=== PATIENT | male | born 1955 | race Caucasian/White ===

== ENCOUNTER 2017-04-11 14:15 | Inpatient (IN) | payer MEDICARE, OTHER ==
[~2017-04-11] VITALS: Ht 177.8 cm; Wt 79.9 kg
[2017-04-11 14:18] VITALS: BP 137/85
[2017-04-11] MEDS ORDERED: Ipratropium 0.02% Inh Soln 2.5ml UD HHN ONE (14:30)
[2017-04-11] MEDS ORDERED: Solu-MEDROL 125mg Inj IVP ONE (14:30)
--- NOTE | 2017-04-11 14:31 | Emergency Room Report ---
History of Present Illness General Chief Complaint: Overdose Source: Patient, Medical Record, EMS (Bell Rosa M.D.) Present Illness HPI 61-year-old male with history of COPD, current smoker, p/w possible overdose Patient states that today he went to go smoke a cigarette, came back inside, and does not remember anything. EMS states that when they arrived, patient had decreased respirations, low oxygen saturation, they gave 4 mg intranasal Narcan, with improvement of symptoms. Patient then became ANO x4, with improvement of oxygenation EMS also states that patient is only on Neurontin, stated that girlfriend came yesterday, and possibly gave something to the patient. However patient is denying this. Patient denies any drug or alcohol use. Patient also shortness of breath, states that he is intermittently on nasal cannula SOB occurs both at rest and on exertion. Denies any fever chills cough or chest pain currently. Patient doesn't have a history of intubation in the past secondary to COPD exacerbation (Bell Rosa M.D.) Allergies: Coded Allergies: HALOPERIDOL (Verified Allergy, Unknown, 04/12/17) THIORIDAZINE (Verified Allergy, Unknown, 04/12/17) TIOTROPIUM (Verified Allergy, Unknown, 04/12/17) Patient History Past Medical History: see triage record Past Surgical History: none Pertinent Family History: none Reviewed Nursing Documentation: PMH: Agreed, PSxH: Agreed (Bell Rosa M.D. ) Nursing Documentation-PMH Hx Hypertension: Yes Hx COPD: Yes (Bell Rosa M.D.) Physical Exam Vital Signs Date Time Temp Pulse Resp B/P (MAP) Pulse Ox O2 Delivery O2 Flow Rate FiO2 04/11/17 14:08 98.6 90 16 137/85 94 Nasal Cannula 3.0 Sp02 EP Interpretation: abnormal General Appearance: alert, GCS 15, moderate distress, other - Middle aged male , alert, conversing appropriately, respiratory distress, speaking in 3-4 word sentences Head: normocephalic, atraumatic Eyes: bilateral eye normal inspection, bilateral eye PERRL, bilateral eye EOMI ENT: normal ENT inspection, normal pharynx, normal voice, moist mucus membranes Neck: normal inspection, full range of motion, supple Respiratory: other - Inspiratory and expiratory wheezing bilaterally, respiratory distress Cardiovascular #1: normal inspection, regular rate, rhythm, normal capillary refill Cardiovascular #2: 2+ radial (R), 2+ radial (L) Gastrointestinal: normal inspection, non tender, soft, non-distended, no guarding Musculoskeletal: normal inspection, back normal, normal range of motion, non- tender Neurologic: normal inspection, alert, oriented x3, responsive, motor strength/ tone normal, sensory intact, normal gait, speech normal Psychiatric: normal inspection, judgement/insight normal, memory normal Skin: normal inspection, normal color, no rash, warm/dry, well hydrated, normal turgor (Bell Rosa M.D.) Procedures Critical Care Time Critical Care Time 40 minutes of CC time 61-year-old male, possible overdose, also with COPD exacerbation VS: Hypoxic, tachypneic PLAN: IV access, labs, nebs, steroids, magnesium, BiPAP Anticipate admission to Tele vs. [facility] CC time also includes review of labs, review of EMR, discussion with family and paperwork from SNF, d/w hospitalist CC could include dosing of pressors, additional Abx CC time does not include procedures (Bell Rosa M.D.) Intubation Intubation : Consent: Emergent Intubation Method: orotracheal Tube Size (cm): 7.5 Medications: Etomidate Breath Sounds after Intubation: equal Intubation Complications: no complications Post Intubation Xray: Yes Attempts: One Patient Tolerated: Well Complications: None (Bell Rosa M.D.) Medical Decision Making Diagnostic Impression: Primary Impression: COPD exacerbation Additional Impressions: UTI (urinary tract infection) Respiratory failure ER Course 61-year-old male, history of COPD, shortness of breath, also possible overdose DDX: COPD exacerbation, viral illness, pneumonia, ACS Overdose secondary to opiates, heroin and, other toxic overdoses Plan: IV access, cardiac cath rn, O2 nasal cannula, EKG, CXR obtain basic labs including blood gas, troponin, Duonebs, steroids, consider mag, Will consider BIPAP for persistent or worsening respiratory status ER Course: Patient has been placed on BIPAP. Patient has been treated with combivent x 3, steroids + IV mag sulfate CXR reveals no acute infiltrate Repeat lung auscultation reveals persistent wheezing. Patent's remains tachypneic and hypoxic on room air. abx given, also had UTI Disposition: Patient will be admitted to ICU D/W hospitalist Dr Maldonado Please note that this Emergency Department Report was dictated using Live [employer] intervention specialist technology software, occasionally this can lead to erroneous entry secondary to interpretation by the dictation equipment. EKG Diagnostic Results EP Interpretation: Yes Rate: normal Rhythm: NSR ST Segments: No acute changes n ASA given to patient: no Rhythm Strip EP Interpretation: Yes Rate: 85 Rhythm: NSR, no PVCs, no ectopy Chest X-ray CXR: Ordered: Yes 1 view Indication: Shortness of breath EP interpretation: Yes Interpretation: No consolidation, no effusion, no PTX, no acute cardiopulmonary disease Impression: No acute disease Electronically signed by Bell Rosa MD Chest X-ray CXR: Ordered: Yes 1 view Indication: ET-tube EP interpretation: Yes Interpretation: ET tube in appropriate position Impression: ET tube in appropriate position Electronically signed by Bell Rosa MD Laboratory Tests Test 04/11/17 14:25 04/11/17 15:05 04/11/17 15:50 04/11/17 16:41 Arterial Blood pH 7.340 (7.350-7.450) 7.301 (7.350-7.450) 7.296 (7.350-7.450) Arterial Blood Partial Pressure CO2 81.4 mmHg (35.0-45.0) *H 77.9 mmHg (35.0-45.0) *H 90.8 mmHg (35.0-45.0) *H Arterial Blood Partial Pressure O2 51.6 mmHg (75.0-100.0) L 92.4 mmHg (75.0-100.0) 88.0 mmHg (75.0-100.0) Arterial Blood HCO3 42.9 mmol/L (22.0-26.0) H 37.6 mmol/L (22.0-26.0) H 43.3 mmol/L (22.0-26.0) H Arterial Blood Oxygen Saturation 86.2 % (92.0-98.0) L 96.2 % (92.0-98.0) 96.2 % (92.0-98.0) Arterial Blood Base Excess 13.1 8.0 12.3 Henrry Test Positive Positive Positive White Blood Count 7.4 K/UL (4.8-10.8) Red Blood Count 5.11 M/UL (4.70-6.10) Hemoglobin 14.5 G/DL (14.2-18.0) Hematocrit 43.8 % (42.0-52.0) Mean Corpuscular Volume 86 FL (80-99) Mean Corpuscular Hemoglobin 28.5 PG (27.0-31.0) Mean Corpuscular Hemoglobin Concent 33.2 G/DL (32.0-36.0) Red Cell Distribution Width 16.7 % (11.6-14.8) H Platelet Count 208 K/UL (150-450) Mean Platelet Volume 6.3 FL (6.5-10.1) L Neutrophils (%) (Auto) 66.9 % (45.0-75.0) Lymphocytes (%) (Auto) 21.2 % (20.0-45.0) Monocytes (%) (Auto) 9.4 % (1.0-10.0) Eosinophils (%) (Auto) 1.4 % (0.0-3.0) Basophils (%) (Auto) 1.1 % (0.0-2.0) Urine Color Pale yellow Urine Appearance Slightly cloudy Urine pH 7 (4.5-8.0) Urine Specific Drewsey 1.000 (1.005-1.035) Urine Protein Negative (NEGATIVE) Urine Glucose (UA) Negative (NEGATIVE) Urine Ketones Negative (NEGATIVE) Urine Occult Blood Negative (NEGATIVE) Urine Nitrite Negative (NEGATIVE) Urine Bilirubin Negative (NEGATIVE) Urine Urobilinogen Normal MG/DL (0.0-1.0) Urine Leukocyte Esterase 3+ (NEGATIVE) H Urine RBC 0 /HPF (0 - 0) Urine WBC 15-20 /HPF (0 - 0) H Urine Squamous Epithelial Cells Occasional /LPF Urine Bacteria Moderate /HPF (NONE) H Sodium Level 137 MMOL/L (136-145) Potassium Level 4.0 MMOL/L (3.5-5.1) Chloride Level 98 MMOL/L (98-107) Carbon Dioxide Level 39 MMOL/L (21-32) H Anion Gap -4 mmol/L (5-15) L Blood Urea Nitrogen 8 mg/dL (7-18) Creatinine 0.7 MG/DL (0.55-1.30) Estimate Glomerular Filtration Rate > 60 mL/min (>60) Glucose Level 92 MG/DL (74-106) Calcium Level 8.8 MG/DL (8.5-10.1) Total Bilirubin 0.2 MG/DL (0.2-1.0) Aspartate Amino Transferase (AST) 24 U/L (15-37) Alanine Aminotransferase (ALT) 26 U/L (12-78) Alkaline Phosphatase 63 U/L (46-116) Troponin I 0.013 ng/mL (0.000-0.056) Pro-B-Type Natriuretic Peptide 388 pg/mL (0-125) H Total Protein 6.6 G/DL (6.4-8.2) Albumin 3.0 G/DL (3.4-5.0) L Globulin 3.6 g/dL Albumin/Globulin Ratio 0.8 (1.0-2.7) L Salicylates Level 2.1 ug/mL (2.8-20) L Urine Opiates Screen Negative (NEGATIVE) Acetaminophen Level < 2 MCG/ML (10-30) L Urine Barbiturates Screen Negative (NEGATIVE) Phencyclidine (PCP) Screen Negative (NEGATIVE) Urine Amphetamines Screen Negative (NEGATIVE) Urine Benzodiazepines Screen Negative (NEGATIVE) Urine Cocaine Screen Negative (NEGATIVE) Urine Marijuana (THC) Screen Negative (NEGATIVE) Serum Alcohol < 3 mg/dL (Bell Rosa M.D.) ER Course Please see above history and physical. The patient's and potassium side. We are repeating a EKG. The patient has a respiratory acidosis which may contribute to the potassium. In addition to that will be giving him a calcium gluconate and Lasix. EKG without peaked T waves. Patient anxious off of propofol. Versed ordered. Due to ABG and CXR, not able to extubate at this time. (Malik Bravo M.D.) EKG Diagnostic Results Rate: tachycardiac ST Segments: no acute changes (Malik Bravo M.D.) Rhythm Strip Diag. Results EP Interpretation: yes Rhythm: no PVC's, no ectopy, other - ST (Malik Bravo M.D.) Last Vital Signs Date Time Temp Pulse Resp B/P (MAP) Pulse Ox O2 Delivery O2 Flow Rate FiO2 04/11/17 14:08 98.6 90 16 137/85 94 Nasal Cannula 3.0 (Bell Rosa M.D.) Status: improved (Malik Bravo M.D.) Disposition: ADMITTED INPATIENT Condition: Critical Bell Rosa M.D. Apr 11, 2017 14:31 Malik Bravo M.D. Apr 12, 2017 07:01
[2017-04-11] MEDS: Albuterol ud Inhalation HHN SCH ×5 (15:01→20:04)
[2017-04-11 15:19] LABS: BILIRUBIN, URINE NEGATIVE (NEGATIVE); COLOR,URINE PALE YELLOW; GLUCOSE, URINE (UA) NEGATIVE (NEGATIVE); KETONES,URINE NEGATIVE (NEGATIVE); LEUKOCYTE ESTERASE ,URINE 3+ (NEGATIVE); NITRITE,URINE NEGATIVE (NEGATIVE); PH,URINE 7 (4.5-8.0); PROTEIN,URINE NEGATIVE (NEGATIVE); UROBILINOGEN,URINE NORMAL MG/DL (0.0-1.0)
[2017-04-11 15:25] LABS: BASOPHILS % (AUTO) 1.1 % (0.0-2.0); EOSINOPHILS % (AUTO) 1.4 % (0.0-3.0); HEMATOCRIT 43.8 % (42.0-52.0); HEMOGLOBIN 14.5 G/DL (14.2-18.0); LYMPHOCYTES % (AUTO) 21.2 % (20.0-45.0); MEAN CORPUSCULAR VOLUME 86 FL (80-99); MONOCYTES % (AUTO) 9.4 % (1.0-10.0); NEUTROPHILS % (AUTO) 66.9 % (45.0-75.0); PLATELET COUNT 208 K/UL (150-450); RED BLOOD COUNT 5.11 M/UL (4.70-6.10); RED CELL DISTRIBUTION WIDTH 16.7 % (11.6-14.8); WHITE BLOOD COUNT 7.4 K/UL (4.8-10.8)
[2017-04-11 15:30] VITALS: BP 135/86
[2017-04-11 15:31] LABS: APPEARANCE,URINE SLIGHTLY CLOUDY
[2017-04-11 15:37] LABS: ALANINE AMINOTRANSFERASE 26 U/L (12-78); ALBUMIN/GLOBULIN RATIO 0.8 (1.0-2.7); ALKALINE PHOSPHATASE 63 U/L (46-116); ANION GAP -4 mmol/L (5-15); ASPARTATE AMINO TRANSFERASE 24 U/L (15-37); BILIRUBIN,TOTAL 0.2 MG/DL (0.2-1.0); BLOOD UREA NITROGEN 8 mg/dL (7-18); CALCIUM 8.8 MG/DL (8.5-10.1); CHLORIDE 98 MMOL/L (98-107); CREATININE 0.7 MG/DL (0.55-1.30); SODIUM 137 MMOL/L (136-145)
[2017-04-11] MEDS ORDERED: Cefepime HCl 2 GM in D5W 55 ML IVPB ONE (15:45)
[2017-04-11 15:48] LABS: CARBON DIOXIDE 39 MMOL/L (21-32)
[2017-04-11 17:33] VITALS: BP 131/85
[2017-04-11] MEDS ORDERED: Cefepime 2gm ONE (18:47)
[2017-04-11] MEDS: Ipratropium 0.02% Inh Soln 2.5ml UD HHN SCH ×3 (19:26→20:04)
[2017-04-11 19:33] VITALS: BP 124/104
--- NOTE | 2017-04-11 20:03 | Consultation ---
Consult Note Assessment/Plan pulm consult dict DENISA MALONEY Apr 11, 2017 20:03
[2017-04-11 20:33] VITALS: BP 129/77
[2017-04-11] MEDS ORDERED: D5 1/2NS w/KCl 20mEq 1,000 ML IV SCH (22:00)
[2017-04-11] MEDS ORDERED: Pantoprazole Inj IVP SCH (22:00)
[2017-04-11 22:33] VITALS: BP 111/69
[2017-04-11] MEDS: cefTRIAXone 1 GM in NS 55 ML IVPB SCH (22:52)
[2017-04-11] MEDS ORDERED: Azithromycin 500mg Inj IV ONE (23:45)
[2017-04-11] MEDS: Azithromycin 250 MG in D5W 275 ML IV SCH (23:57)
[2017-04-12] VITALS (20 sets, daily range): BP systolic 120–166; BP diastolic 67–86
[2017-04-12] MEDS ORDERED: ALBUTEROL2.5 MG/3 M INH (00:01)
[2017-04-12] MEDS ORDERED: FAMOTIDINE20 MG ORAL (00:02)
[2017-04-12] MEDS ORDERED: AMLODIPINE BES2.5 MG ORAL (00:02)
[2017-04-12] MEDS ORDERED: GABAPENTIN400 MG ORAL (00:03)
[2017-04-12] MEDS ORDERED: MAGNESIUM400 M1 PO (00:03)
[2017-04-12] MEDS ORDERED: TAMSULOSIN HCL0.4 MG ORAL (00:04)
[2017-04-12] MEDS ORDERED: MIRTAZAPINE15 MG ORAL (00:06)
[2017-04-12] MEDS ORDERED: TYLENOL650 MG/20. ORAL (00:07)
[2017-04-12] MEDS ORDERED: MULTIVITAMINS1 EAC2 ORAL (00:07)
[2017-04-12] MEDS ORDERED: PRO-STAT LIQUID30 ML ORAL (00:08)
[2017-04-12] MEDS ORDERED: WELLBUTRIN SR100 MG ORAL (00:08)
[2017-04-12] MEDS: Albuterol/Ipratropium 3ml neb HHN SCH ×7 (00:13→23:34)
[2017-04-12] MEDS: Solu-MEDROL 40mg Inj IVP SCH ×5 (01:10→23:55)
--- NOTE | 2017-04-12 04:45 | Consultation ---
DATE OF CONSULTATION: 04/11/2017 PULMONARY CONSULTATION CHIEF COMPLAINT: Short of breath and altered mental status. HISTORY OF PRESENT ILLNESS: This is a 61-year-old man with a history of chronic obstructive pulmonary disease, who is a current smoker was living at a facility and went out to smoke. When he came back, he does not remember anything that happened after that. He was brought to the emergency department with altered mental status. There was a question of drug overdose and Narcan was given, but his toxicology screen was negative. Apparently became more alert after Narcan. In the emergency department, he was short of breath and blood gases showed severe respiratory acidosis and he was intubated. I was called in to see him in consultation. PAST MEDICAL HISTORY: Apparently, the patient has a history of chronic obstructive pulmonary disease and was intubated about a month ago at another hospital according to the primary physician, details are not known. ALLERGIES: Haloperidol. MEDICATIONS: Neurontin. REVIEW OF SYSTEMS: Cannot be obtained. PHYSICAL EXAMINATION: GENERAL: The patient is awake, but sedated. He appears well developed and well nourished. VITAL SIGNS: Stable. He has saturation of 100% on 100% oxygen by ventilator. SKIN: Warm and dry. HEENT: The head is normocephalic. NECK: No jugular venous distention. CHEST: Decreased air entry with prolonged expiratory phase. There is no wheezing or rales. CARDIAC: Rhythm is regular. Heart tones are distant. ABDOMEN: Soft and nontender. Liver and spleen not enlarged. EXTREMITIES: No clubbing, cyanosis, or edema. LABORATORY STUDIES: Show toxicology with negative results. Blood gas shows pH of 7.3, pCO2 of 90, and pO2 of 88 before intubation. His blood gas was getting progressively worse before intubation. The white count is normal. Hemoglobin is 14.5, platelets are normal. Chemistry shows elevated bicarbonate. Natriuretic peptide is 388. Albumin 3.0. Urinalysis shows 15 to 20 white cells. DIAGNOSTIC DATA: Chest x-ray shows hyperinflation with no acute changes. There are healed rib fractures on the left. IMPRESSION: 1. Acute respiratory failure. 2. Chronic obstructive pulmonary disease, hypercapnic type. 3. Possible drug abuse, although toxicology screen was negative. He responded favorably to Narcan. 4. Urinary tract infection. PLAN: The patient will be admitted to intensive care unit on ventilator support with steroids, bronchodilators, and antibiotics as well as intravenous fluids. Ketan Celestin M.D. DR: TOMÁS JOB#: [id number] CC: Jacqueline Rodriguez M.D.; Fax#: [phone] KETAN CELESTIN M.D. ; FAX#: [phone]
[2017-04-12] MEDS ORDERED: Solu-MEDROL 40mg Inj ONE (06:08)
[2017-04-12 06:25] LABS: HEMATOCRIT 46.7 % (42.0-52.0); HEMOGLOBIN 15.1 G/DL (14.2-18.0); MEAN CORPUSCULAR VOLUME 87 FL (80-99); PLATELET COUNT 236 K/UL (150-450); RED BLOOD COUNT 5.34 M/UL (4.70-6.10); RED CELL DISTRIBUTION WIDTH 17.5 % (11.6-14.8); WHITE BLOOD COUNT 9.2 K/UL (4.8-10.8)
[2017-04-12 06:49] LABS: ALANINE AMINOTRANSFERASE 27 U/L (12-78); ALBUMIN 3.1 G/DL (3.4-5.0); ALBUMIN/GLOBULIN RATIO 0.8 (1.0-2.7); ALKALINE PHOSPHATASE 70 U/L (46-116); ANION GAP 1 mmol/L (5-15); ASPARTATE AMINO TRANSFERASE 34 U/L (15-37); BILIRUBIN,TOTAL 0.3 MG/DL (0.2-1.0); BLOOD UREA NITROGEN 16 mg/dL (7-18); CALCIUM 9.4 MG/DL (8.5-10.1); CARBON DIOXIDE 37 MMOL/L (21-32); CHLORIDE 96 MMOL/L (98-107); SODIUM 133 MMOL/L (136-145)
[2017-04-12] MEDS ORDERED: Calcium Gluconate 1gm/10ml vial IVP ONE (07:00)
[2017-04-12] MEDS ORDERED: Midazolam 2mg/2ml Inj IVP ONE (07:15)
[2017-04-12] MEDS ORDERED: D5 1/2NS 1,000 ML IV SCH (08:15)
[2017-04-12] MEDS ORDERED: Albuterol/Ipratropium 3ml neb HHN PRN (09:30)
--- NOTE | 2017-04-12 11:16 | Diagnostic Imaging Report ---
Indication: Reason For Exam: SOB Technique: One view of the chest Comparison: none Findings: Multiple old healed left rib fracture deformities are demonstrated. The heart size is normal. The lungs and pleural spaces are clear. Impression: No acute process
--- NOTE | 2017-04-12 12:20 | Diagnostic Imaging Report ---
Indication: Status post endotracheal tube placement Technique: One view of the chest Comparison: 5 hours earlier Findings: There is an endotracheal tube, tip above the thoracic inlet, at or just below the level of the vocal cords. Patient is rotated to the right. Lungs and pleural spaces are clear. Healed left rib fractures and underlying pleural thickening are again demonstrated. There are some old right rib fracture deformities on the current study which are more apparent than on the prior. Impression: High position of endotracheal tube. This was apparently recognized, as a subsequent radiograph demonstrates improved position. Other findings as noted
--- NOTE | 2017-04-12 12:38 | Diagnostic Imaging Report ---
Indication: Post endotracheal tube readjustment Technique: One view of the chest Comparison: One hour earlier Findings: Interval advancement of endotracheal tube, tip now at or just below the thoracic inlet, approximately 6 cm above the adriana. Atelectasis or scarring is seen at the left lung base. Bilateral healed rib fracture deformities and associated pleural thickening are again demonstrated. No new infiltrates Impression: Improved and now satisfactory position of endotracheal tube Other stable findings as described
--- NOTE | 2017-04-12 13:31 | Consultation ---
Consult Note Consult Note asked to evaluate for high K is ER: 61-year-old male with history of COPD, current smoker, p/w possible overdose Patient states that today he went to go smoke a cigarette, came back inside, and does not remember anything. EMS states that when they arrived, patient had decreased respirations, low oxygen saturation, they gave 4 mg intranasal Narcan, with improvement of symptoms. Patient then became ANO x4, with improvement of oxygenation EMS also states that patient is only on Neurontin, stated that girlfriend came yesterday, and possibly gave something to the patient. However patient is denying this. Patient denies any drug or alcohol use. Patient also shortness of breath, states that he is intermittently on nasal cannula SOB occurs both at rest and on exertion. Denies any fever chills cough or chest pain currently. Patient doesn't have a history of intubation in the past secondary to COPD exacerbation Patient examined- data reviewed Discussed with RN . Assessment/Plan Currently in ICU Was extubated High K possibly hemolysis. Other: - Acute respiratory failure. - Chronic obstructive pulmonary disease, hypercapnic type. - Possible drug abuse, although toxicology screen was negative. He responded favorably to Narcan. - Urinary tract infection. Plan : Recheck stat K . And treat and comment according to the results continue per pulmonary. CHIP DINH Apr 12, 2017 13:31
[2017-04-12] MEDS: D5NS 1,000 ML IV SCH (15:30)
--- NOTE | 2017-04-12 16:52 | Pulmonology Progress Note ---
Assessment/Plan Assessment/Plan 1. Acute respiratory failure. 2. Chronic obstructive pulmonary disease, hypercapnic type. 3. Possible drug abuse. 4. Urinary tract infection. Looks much better good weaning parameters this AM when I visited extubate start diet cont HHN, steroids, abx Subjective Constitutional: Reports: no symptoms Respiratory: Denies: shortness of breath Allergies: Coded Allergies: HALOPERIDOL (Verified Allergy, Unknown, 04/12/17) THIORIDAZINE (Verified Allergy, Unknown, 04/12/17) TIOTROPIUM (Verified Allergy, Unknown, 04/12/17) Objective Last 24 Hour Vital Signs Date Time Temp Pulse Resp B/P (MAP) Pulse Ox O2 Delivery O2 Flow Rate FiO2 04/12/17 16:00 3.0 04/12/17 15:00 99 20 133/71 91 04/12/17 14:45 100 26 97 Nasal Cannula 3.0 32 04/12/17 14:34 98 19 92 Nasal Cannula 3.0 32 04/12/17 14:00 97 20 131/68 92 04/12/17 13:00 104 23 120/69 92 04/12/17 12:00 107 04/12/17 12:00 99.0 107 26 127/76 92 04/12/17 11:00 104 33 123/74 92 04/12/17 10:54 95 24 98 Nasal Cannula 3.0 32 04/12/17 10:43 95 28 91 Nasal Cannula 3.0 32 04/12/17 10:00 88 25 136/69 89 04/12/17 09:30 93 27 96 Nasal Cannula 3.0 32 04/12/17 09:20 96 20 91 Nasal Cannula 3.0 32 04/12/17 09:00 90 23 147/76 92 04/12/17 09:00 Nasal Cannula 3.0 32 04/12/17 09:00 3.0 04/12/17 08:46 87 19 65 04/12/17 08:20 97 20 156/73 100 Mechanical Ventilator 04/12/17 08:00 30 04/12/17 08:00 97.9 90 16 147/76 100 Mechanical Ventilator 04/12/17 07:12 112 16 99 Mechanical Ventilator 65 04/12/17 07:01 89 15 98 Mechanical Ventilator 65 04/12/17 07:01 89 15 65 04/12/17 05:33 97.8 80 17 133/69 100 Mechanical Ventilator 04/12/17 04:33 97.8 77 13 125/79 100 Mechanical Ventilator 04/12/17 04:12 40 04/12/17 04:12 79 12 100 Mechanical Ventilator 65 04/12/17 04:02 88 12 99 Mechanical Ventilator 65 04/12/17 03:18 85 12 65 04/12/17 02:33 98.0 80 12 130/84 100 Mechanical Ventilator 04/12/17 01:25 89 17 65 04/12/17 00:33 97.8 81 13 130/68 100 Mechanical Ventilator 04/12/17 00:27 86 12 100 Mechanical Ventilator 65 04/12/17 00:27 40 04/12/17 00:13 86 14 99 Mechanical Ventilator 65 04/11/17 23:11 88 12 65 04/11/17 22:33 98.0 84 18 111/69 98 Mechanical Ventilator 04/11/17 21:10 88 18 100 04/11/17 21:10 18 04/11/17 20:33 98.0 87 17 129/77 98 Mechanical Ventilator 04/11/17 20:10 17 04/11/17 19:46 17 04/11/17 19:33 98.1 88 18 124/104 97 Mechanical Ventilator 04/11/17 19:32 92 18 99 Mechanical Ventilator 100 04/11/17 19:31 18 04/11/17 19:16 18 04/11/17 19:00 83 18 100 04/11/17 18:40 15.0 65 04/11/17 17:33 97.7 84 30 131/85 98 Bi-pap 3.0 40 Intake and Output 04/11/17 04/12/17 19:00 07:00 Intake Total 300 ml Output Total 400 ml Balance -400 ml 300 ml Intake IV Total 300 ml Output Urine Total 400 ml # Voids 1 General Appearance: no acute distress HEENT: normocephalic, atraumatic Respiratory/Chest: lungs clear, decreased breath sounds Cardiovascular: normal rate Abdomen: soft, non tender Microbiology Date/Time Source Procedure Growth Status 04/11/17 15:05 Urine,Clean Catch Urine Culture - Preliminary Resulted Laboratory Tests 04/11/17 19:44: Arterial Blood pH 7.309L, Arterial Blood Partial Pressure CO2 80.7*H, Arterial Blood Partial Pressure O2 135.7H, Arterial Blood HCO3 39.6H, Arterial Blood Oxygen Saturation 98.6H, Arterial Blood Base Excess 9.6, Henrry Test Positive 04/11/17 21:34: Arterial Blood pH 7.284L, Arterial Blood Partial Pressure CO2 87.7*H, Arterial Blood Partial Pressure O2 122.0H, Arterial Blood HCO3 40.7H, Arterial Blood Oxygen Saturation 98.3H, Arterial Blood Base Excess 9.9, Henrry Test Positive 04/12/17 05:00: White Blood Count 9.2, Red Blood Count 5.34, Hemoglobin 15.1, Hematocrit 46.7, Mean Corpuscular Volume 87, Mean Corpuscular Hemoglobin 28.3, Mean Corpuscular Hemoglobin Concent 32.4, Red Cell Distribution Width 17.5H, Platelet Count 236, Mean Platelet Volume 7.0, Neutrophils (%) (Auto) , Lymphocytes (%) (Auto) , Monocytes (%) (Auto) , Eosinophils (%) (Auto) , Basophils (%) (Auto) , Sodium Level 133L, Potassium Level 6.0*H, Chloride Level 96L, Carbon Dioxide Level 37H , Anion Gap 1L, Blood Urea Nitrogen 16, Creatinine 1.0, Estimat Glomerular Filtration Rate > 60, Glucose Level 178H, Calcium Level 9.4, Total Bilirubin 0.3 , Aspartate Amino Transf (AST/SGOT) 34, Alanine Aminotransferase (ALT/SGPT) 27, Alkaline Phosphatase 70, Total Protein 7.2, Albumin 3.1L, Globulin 4.1, Albumin/ Globulin Ratio 0.8L, Triglycerides Level 41, Prostate Specific Antigen 1.16, Thyroid Stimulating Hormone (TSH) 0.378 04/12/17 14:25: Potassium Level 4.2, C-Reactive Protein, Quantitative < 0.4 Current Medications Medications (Trade) Dose Ordered Sig/Quoc Route PRN Reason Start Time Stop Time Status Last Admin Dose Admin Albuterol/ Ipratropium (Albuterol/ Ipratropium) 3 ml Q2H PRN N Shortness of Breath 04/12/17 09:30 04/17/17 09:29 04/12/17 09:39 Albuterol/ Ipratropium (Albuterol/ Ipratropium) 3 ml Q4HRT HHN 04/11/17 23:00 04/16/17 22:59 04/12/17 14:33 Azithromycin 250 mg/Dextrose 275 ml @ 275 mls/hr Q24HRS IV 04/11/17 23:00 04/17/17 23:59 04/11/17 23:57 Ceftriaxone Sodium 1 gm/ Sodium Chloride 55 ml @ 110 mls/hr Q24H IVPB 04/11/17 22:30 04/18/17 22:29 04/11/17 22:52 Dextrose/Sodium Chloride 1,000 ml @ 75 mls/hr [id number] IV 04/12/17 14:30 05/12/17 14:29 04/12/17 15:30 Methylprednisolone Sodium Succinate (Solu-MEDROL) 40 mg EVERY 6 HOURS IVP 04/12/17 00:00 05/12/17 00:00 04/12/17 13:00 Pantoprazole (Protonix) 40 mg Q12HR IVP 04/12/17 21:00 05/11/17 21:59 DENISA MALONEY Apr 12, 2017 16:52
--- NOTE | 2017-04-12 17:09 | Cardiology Progress Note ---
Assessment/Plan Assessment/Plan The patient is seen and examined, full consult note will be dictated. Objective Last 24 Hour Vital Signs Date Time Temp Pulse Resp B/P (MAP) Pulse Ox O2 Delivery O2 Flow Rate FiO2 04/12/17 16:00 3.0 04/12/17 16:00 99.0 110 20 149/76 91 04/12/17 15:00 99 20 133/71 91 04/12/17 14:45 100 26 97 Nasal Cannula 3.0 32 04/12/17 14:34 98 19 92 Nasal Cannula 3.0 32 04/12/17 14:00 97 20 131/68 92 04/12/17 13:00 104 23 120/69 92 04/12/17 12:00 107 04/12/17 12:00 99.0 107 26 127/76 92 04/12/17 11:00 104 33 123/74 92 04/12/17 10:54 95 24 98 Nasal Cannula 3.0 32 04/12/17 10:43 95 28 91 Nasal Cannula 3.0 32 04/12/17 10:00 88 25 136/69 89 04/12/17 09:30 93 27 96 Nasal Cannula 3.0 32 04/12/17 09:20 96 20 91 Nasal Cannula 3.0 32 04/12/17 09:00 90 23 147/76 92 04/12/17 09:00 Nasal Cannula 3.0 32 04/12/17 09:00 3.0 04/12/17 08:46 87 19 65 04/12/17 08:20 97 20 156/73 100 Mechanical Ventilator 04/12/17 08:00 30 04/12/17 08:00 97.9 90 16 147/76 100 Mechanical Ventilator 04/12/17 07:12 112 16 99 Mechanical Ventilator 65 04/12/17 07:01 89 15 98 Mechanical Ventilator 65 04/12/17 07:01 89 15 65 04/12/17 05:33 97.8 80 17 133/69 100 Mechanical Ventilator 04/12/17 04:33 97.8 77 13 125/79 100 Mechanical Ventilator 04/12/17 04:12 40 04/12/17 04:12 79 12 100 Mechanical Ventilator 65 04/12/17 04:02 88 12 99 Mechanical Ventilator 65 04/12/17 03:18 85 12 65 04/12/17 02:33 98.0 80 12 130/84 100 Mechanical Ventilator 04/12/17 01:25 89 17 65 04/12/17 00:33 97.8 81 13 130/68 100 Mechanical Ventilator 04/12/17 00:27 86 12 100 Mechanical Ventilator 65 04/12/17 00:27 40 04/12/17 00:13 86 14 99 Mechanical Ventilator 65 04/11/17 23:11 88 12 65 04/11/17 22:33 98.0 84 18 111/69 98 Mechanical Ventilator 04/11/17 21:10 88 18 100 04/11/17 21:10 18 04/11/17 20:33 98.0 87 17 129/77 98 Mechanical Ventilator 04/11/17 20:10 17 04/11/17 19:46 17 04/11/17 19:33 98.1 88 18 124/104 97 Mechanical Ventilator 04/11/17 19:32 92 18 99 Mechanical Ventilator 100 04/11/17 19:31 18 04/11/17 19:16 18 04/11/17 19:00 83 18 100 04/11/17 18:40 15.0 65 04/11/17 17:33 97.7 84 30 131/85 98 Bi-pap 3.0 40 Intake and Output 04/11/17 04/12/17 19:00 07:00 Intake Total 300 ml Output Total 400 ml Balance -400 ml 300 ml Intake IV Total 300 ml Output Urine Total 400 ml # Voids 1 Laboratory Tests Test 04/11/17 19:44 04/11/17 21:34 04/12/17 05:00 04/12/17 14:25 Arterial Blood pH 7.309 (7.350-7.450) 7.284 (7.350-7.450) Arterial Blood Partial Pressure CO2 80.7 mmHg (35.0-45.0) *H 87.7 mmHg (35.0-45.0) *H Arterial Blood Partial Pressure O2 135.7 mmHg (75.0-100.0) H 122.0 mmHg (75.0-100.0) H Arterial Blood HCO3 39.6 mmol/L (22.0-26.0) H 40.7 mmol/L (22.0-26.0) H Arterial Blood Oxygen Saturation 98.6 % (92.0-98.0) H 98.3 % (92.0-98.0) H Arterial Blood Base Excess 9.6 9.9 Henrry Test Positive Positive White Blood Count 9.2 K/UL (4.8-10.8) Red Blood Count 5.34 M/UL (4.70-6.10) Hemoglobin 15.1 G/DL (14.2-18.0) Hematocrit 46.7 % (42.0-52.0) Mean Corpuscular Volume 87 FL (80-99) Mean Corpuscular Hemoglobin 28.3 PG (27.0-31.0) Mean Corpuscular Hemoglobin Concent 32.4 G/DL (32.0-36.0) Red Cell Distribution Width 17.5 % (11.6-14.8) H Platelet Count 236 K/UL (150-450) Mean Platelet Volume 7.0 FL (6.5-10.1) Neutrophils (%) (Auto) % (45.0-75.0) Lymphocytes (%) (Auto) % (20.0-45.0) Monocytes (%) (Auto) % (1.0-10.0) Eosinophils (%) (Auto) % (0.0-3.0) Basophils (%) (Auto) % (0.0-2.0) Sodium Level 133 MMOL/L (136-145) L Potassium Level 6.0 MMOL/L (3.5-5.1) *H 4.2 MMOL/L (3.5-5.1) Chloride Level 96 MMOL/L (98-107) L Carbon Dioxide Level 37 MMOL/L (21-32) H Anion Gap 1 mmol/L (5-15) L Blood Urea Nitrogen 16 mg/dL (7-18) Creatinine 1.0 MG/DL (0.55-1.30) Estimat Glomerular Filtration Rate > 60 mL/min (>60) Glucose Level 178 MG/DL (74-106) H Calcium Level 9.4 MG/DL (8.5-10.1) Total Bilirubin 0.3 MG/DL (0.2-1.0) Aspartate Amino Transf (AST/SGOT) 34 U/L (15-37) Alanine Aminotransferase (ALT/SGPT) 27 U/L (12-78) Alkaline Phosphatase 70 U/L (46-116) Total Protein 7.2 G/DL (6.4-8.2) Albumin 3.1 G/DL (3.4-5.0) L Globulin 4.1 g/dL Albumin/Globulin Ratio 0.8 (1.0-2.7) L Triglycerides Level 41 MG/DL (30-150) Prostate Specific Antigen 1.16 ng/mL (0.13-4.0) Thyroid Stimulating Hormone (TSH) 0.378 uiU/mL (0.358-3.740) C-Reactive Protein, Quantitative < 0.4 mg/dL (0.00-0.90) Microbiology Date/Time Source Procedure Growth Status 04/11/17 15:05 Urine,Clean Catch Urine Culture - Preliminary Resulted RADHA FOLEY Apr 12, 2017 17:09
--- NOTE | 2017-04-12 18:18 | Cardiology Report ---
APPROVED REPORT EKG Measurement Heart [id number] Sinus tachycardia Otherwise normal ECG
--- NOTE | 2017-04-12 18:21 | Cardiology Report ---
APPROVED REPORT EKG Measurement Heart [id number] Sinus rhythm with marked sinus arrhythmia Otherwise normal ECG
--- NOTE | 2017-04-12 18:36 | Cardiology Report ---
APPROVED REPORT EXAM: Two-dimensional and M-mode echocardiogram with Doppler and color Doppler. INDICATION Congestive Heart Failure M-Mode DIMENSIONS IVSd1.5 (0.7-1.1cm)Left Atrium (MM)3.0 (1.6-4.0cm) LVDd4.5 (3.5-5.6cm)Aortic Root3.2 (2.0-3.7cm) PWd1.1 (0.7-1.1cm)Aortic Cusp Exc.2.0 (1.5-2.0cm) LVDs2.4 (2.5-4.0cm) PWs1.4 cm Technically limited and difficult study due to poor acoustical windows. Images taken from subcostal. Normal left ventricular chamber size, systolic function and wall motion. Left ventricular ejection fraction estimated to be 55-60%. No evidence of left ventricular hypertrophy. Small anterior pericardial effusion. Focal aortic valve sclerosis with adequate cusp excursion. Thickened mitral valve leaflets with normal excursion. Mild mitral annulus and aortic root calcification. Pulmonic valve not well visualized. Normal tricuspid valve structure. IVC is normal in size and collapsible with respiration. A color flow and spectral Doppler study was performed and revealed: No tricuspid regurgitation.
[2017-04-12] MEDS: dilTIAZem HCl 30mg tab ORAL SCH ×2 (18:46→21:46)
[2017-04-12] MEDS: Pantoprazole Inj IVP SCH (20:33)
--- NOTE | 2017-04-12 21:15 | Consultation ---
DATE OF CONSULTATION: 04/12/2017 INFECTIOUS DISEASES CONSULTATION CONSULTING PHYSICIAN: Nestor Muñoz M.D. PRIMARY ATTENDING PHYSICIAN: Jacqueline Rodriguez M.D. REASON FOR CONSULTATION: UTI and COPD exacerbation. HISTORY OF PRESENT ILLNESS: This is a 61-year-old white male who is a [place] [facility] resident, admitted last evening with shortness of breath and altered mental status. He said that he went out to smoke and after that he does not remember what happened. According to daughter, he may take also a narcotic from a friend and partially responded to Narcan. The patient had respiratory failure and was intubated in the ER, transferred to ICU and today extubated. PAST MEDICAL HISTORY: Significant for COPD, has history of intubation in the past, nicotine dependence, paranoid schizophrenia, had history of prostate surgery two years ago, but developed scar and could not urinate and so around two weeks ago the Nguyen catheter was placed. MEDICATIONS: , prednisone, albuterol with ipratropium, azithromycin, ceftriaxone, and Protonix. ALLERGIES: No known drug allergy. SOCIAL HISTORY: Single. Lives in a board and care. Smoking since age of 17, now decreased, he smokes couple of cigarettes a day. Denies drug abuse. REVIEW OF SYSTEMS: No fever. No chills. He has chronic cough that wakes up the patient at night, usually nonproductive. No chest pain. No nausea. No vomiting. No diarrhea. PHYSICAL EXAMINATION: VITAL SIGNS: Temperature 97.9 degrees, pulse 87, and blood pressure 156/73. GENERAL APPEARANCE: No acute distress, well developed. HEAD AND NECK: [place] conjunctivae. HEART: Regular. Normal rate. LUNGS: Decreased expansion and sounds bilaterally. ABDOMEN: Soft and nontender. EXTREMITIES: No edema. GENITOURINARY: Nguyen catheter. NEUROLOGIC: Seems awake, alert, and oriented x3. No focal weakness. LABORATORY AND DIAGNOSTIC DATA: Blood gas showed pH of 7.84, pCO2 of 87.7, pO2 of 122, and O2 saturation 98.3. Sodium 132, potassium 6, chloride 96, bicarbonate 37, BUN 16, creatinine 1, and glucose 78. UA showed WBCs of 15 to 20. Urine culture is pending. IMPRESSION: 1. Chronic obstructive pulmonary disease exacerbation. 2. Pyuria, likely urinary tract infection. 3. Hypercapnic respiratory failure. 4. Hyperkalemia. 5. Nicotine dependence. 6. Paranoid schizophrenia. RECOMMENDATION: We will continue with ceftriaxone and Zithromax. We will follow up the cultures. Needs to quit smoking. At the end of my exam, I thank Dr. Rodriguez for involving me in the care of this patient. Nestor Muñoz M.D. DR: JAKOB JOB#: [id number] CC:
[2017-04-12] MEDS: cefTRIAXone 1 GM in NS 55 ML IVPB SCH (21:56)
[2017-04-12] MEDS: Azithromycin 250 MG in D5W 275 ML IV SCH (23:01)
[2017-04-13] VITALS (24 sets, daily range): BP systolic 121–157; BP diastolic 44–88
--- NOTE | 2017-04-13 01:30 | Consultation ---
DATE OF CONSULTATION: 04/12/2017 CARDIOLOGY CONSULTATION REFERRING PHYSICIAN: Jacqueline Rodriguez MD REASON FOR CONSULTATION: Management of tachycardia and severe dyspnea. The patient is seen in intensive care unit of [facility] for the above conditions. HISTORY OF PRESENT ILLNESS: The patient is a very unfortunate 61-year-old gentleman, who was brought in by EMS after he had an episode of desaturation and decrease respiratory movements. According to the EMS, 4 mg of intranasal Narcan improved the symptoms. He became alert and oriented. He denies any prior history of narcotic use. At the time of arrival to the emergency department, his blood pressure was 137/85 millimeter of mercury, heart rate was 90. He got intubated in the emergency department due to severe hypercapnic hypoxic respiratory failure. The patient was then transferred to intensive care unit for further management and evaluation of dyspnea. Cardiology consultation was made at the request of Dr. Rodriguez for evaluation of dyspnea from the Cardiology standpoint. The patient is currently a extubated. He denies any prior history of coronary artery disease or congestive heart failure. He has had history of respiratory failure in the past due to COPD exacerbation. He has a history of polysubstance abuse including cocaine and also history of daily smoking for many years since he was 18 years old. PAST MEDICAL HISTORY: COPD and history of respiratory failure. PAST SURGICAL HISTORY: None. MEDICATIONS: List of medication includes: 1. Acetaminophen 650 mg q.4 h. p.r.n. headache and temperature above 101 degrees. 2. Albuterol inhaler 3 mL inhaler q.4 h. p.r.n. shortness of breath. 3. Amnio acid/protein hydrolysate or ProStat 30 mL twice daily. 4. Amlodipine 2.5 mg p.o. daily. 5. Wellbutrin 100 mg p.o. twice daily. 6. Famotidine mg p.o. daily. 7. Gabapentin 400 mg three times daily. 8. Magnesium 400 mg p.o. daily. 9. Remeron 50 milligram p.o. at bedtime. 10. Multivitamin one tablet p.o. daily. 11. Tamsulosin 0.4 mg at bedtime. ALLERGIES: No known drug allergies. FAMILY HISTORY: Mother of complication of autoimmune disease. REVIEW OF SYSTEMS: HEENT: Denies any headache, diplopia, or blurred vision. CONSTITUTIONAL: Denies any fever, chills, night sweats, or weight loss. CARDIOVASCULAR: He has shortness of breath due to lung disease. Denies any PND, orthopnea, leg swelling, or syncope. PULMONARY: He has complaints of cough, decreased oxygenation as well as phlegm. PHYSICAL EXAMINATION: GENERAL: The patient is a very agitated 61-year-old gentleman, who was extubated now, in mild respiratory distress, associated hoarseness. VITAL SIGNS: Blood pressure at time of arrival to the hospital was 137/85, respirations of 16, pulse of 90, temperature 98.6 degrees Fahrenheit, and O2 saturation 94% on nasal cannula, this is prior to intubation. Currently, blood pressure is 149/76 with heart rate of 103 and O2 saturation 93% on room air. HEENT: Atraumatic and normocephalic. Anicteric. Pupils are equal, round, and reactive to light and accommodation. Extraocular muscles intact. NECK: JVP less than 5 centimeter. No carotid bruit. Carotid upstrokes 2+ bilaterally. CARDIOVASCULAR: Normal S1 and S2. Regular rate and rhythm. Tachycardic. No murmurs, gallops or rubs. PMI is in the fourth intercostal space in the mid clavicular line. LUNGS: Diminished breath sounds in both zones. ABDOMEN: Soft, nontender, and nondistended. Positive bowel sounds. EXTREMITIES: No evidence of edema, clubbing, or cyanosis. LABORATORY AND DIAGNOSTIC DATA: Sodium 137, potassium 4.0, chloride 98, bicarbonate 39, BUN of 18, creatinine 0.7, and glucose 92. Calcium is 8.8. ProBNP was 388. WBC was 7.4, hemoglobin of 14.5, hematocrit of 43.8, and platelet count is 208,000. Blood gas at the time of arrival to the hospital was pH 7.34, pCO2 81.4, pO2 of 51.6 and bicarbonate of 32.9, and O2 saturation of 86.2%. Urine toxicology was negative . Chest x-ray at the time of admission showed no acute cardiopulmonary disease. A 12-lead electrocardiogram shown sinus tachycardia at a rate of [address] and T-wave abnormalities. ASSESSMENT AND PLAN: The patient is a very unfortunate 61-year-old gentleman, who is seen in Cardiology consultation at request of Dr. Rodriguez. The patient is seen in intensive care unit of [facility]. 1. Dyspnea. I would like to obtain 2D echocardiography for assessment of left ventricular systolic and diastolic function. Certainly, hypoventilation and hypoxic respiratory failure, the mechanism of respiratory failure, which is due to acute exacerbation of chronic obstructive pulmonary disease. We will await for the results of 2D echocardiography. Further diagnosis and therapeutic decision will be based on the results of echocardiography. 2. Sinus tachycardia. I would like to administer diltiazem to both work on hypertension as well as tachycardia without having any bronchoconstrict and effect of beta-blockers. 3. Acute exacerbation of chronic obstructive pulmonary disease. 4. History of anxiety, could be secondary to hypoxemia. Total amount of time spent in evaluation and management of this patient in the intensive care unit of [facility] was 45 minutes. I would like to thank, Dr. Rodriguez, for the courtesy of this consultation. Luciano Lou M.D. DR: BRUNILDA JOB#: [id number] CC:
[2017-04-13] MEDS: Albuterol/Ipratropium 3ml neb HHN SCH ×6 (03:44→22:43)
[2017-04-13] MEDS: D5NS 1,000 ML IV SCH ×2 (04:59→11:58)
[2017-04-13 05:45] LABS: HEMATOCRIT 40.7 % (42.0-52.0); HEMOGLOBIN 13.7 G/DL (14.2-18.0); MEAN CORPUSCULAR VOLUME 86 FL (80-99); PLATELET COUNT 228 K/UL (150-450); RED BLOOD COUNT 4.74 M/UL (4.70-6.10); RED CELL DISTRIBUTION WIDTH 17.4 % (11.6-14.8); WHITE BLOOD COUNT 11.7 K/UL (4.8-10.8)
[2017-04-13] MEDS: Solu-MEDROL 40mg Inj IVP SCH ×3 (05:46→21:30)
[2017-04-13] MEDS: dilTIAZem HCl 30mg tab ORAL SCH ×3 (05:47→21:30)
[2017-04-13 06:15] LABS: ALANINE AMINOTRANSFERASE 24 U/L (12-78); ALBUMIN 2.9 G/DL (3.4-5.0); ALBUMIN/GLOBULIN RATIO 0.9 (1.0-2.7); ALKALINE PHOSPHATASE 62 U/L (46-116); ANION GAP 3 mmol/L (5-15); ASPARTATE AMINO TRANSFERASE 19 U/L (15-37); BILIRUBIN,TOTAL 0.2 MG/DL (0.2-1.0); BLOOD UREA NITROGEN 19 mg/dL (7-18); CALCIUM 9.1 MG/DL (8.5-10.1); CARBON DIOXIDE 34 MMOL/L (21-32); CHLORIDE 98 MMOL/L (98-107); CHOLESTEROL 168 MG/DL (< 200); CREATININE 0.9 MG/DL (0.55-1.30); GAMMA GLUTAMYL TRANSPEPTIDASE 32 U/L (5-85); HDL CHOLESTEROL 82 MG/DL (40-60); PHOSPHORUS 2.7 MG/DL (2.5-4.9); POTASSIUM 3.9 MMOL/L (3.5-5.1); SODIUM 135 MMOL/L (136-145); TRIGLYCERIDES 30 MG/DL (30-150)
[2017-04-13] MEDS: Pantoprazole Inj IVP SCH (08:31)
--- NOTE | 2017-04-13 10:45 | Pulmonology Progress Note ---
Assessment/Plan Assessment/Plan 1. Acute respiratory failure. 2. Chronic obstructive pulmonary disease, hypercapnic type. 3. Possible drug abuse. 4. Urinary tract infection. tolerated extubation start diet cont HHN taper steroids abx out of ICU Subjective Interval Events: anxious Respiratory: Reports: shortness of breath Allergies: Coded Allergies: HALOPERIDOL (Verified Allergy, Unknown, 04/12/17) THIORIDAZINE (Verified Allergy, Unknown, 04/12/17) TIOTROPIUM (Verified Allergy, Unknown, 04/12/17) Objective Last 24 Hour Vital Signs Date Time Temp Pulse Resp B/P (MAP) Pulse Ox O2 Delivery O2 Flow Rate FiO2 04/13/17 10:00 97.7 94 23 156/75 91 Nasal Cannula 3.0 04/13/17 09:00 98.3 97 19 146/78 93 Nasal Cannula 3.0 04/13/17 08:00 92 04/13/17 08:00 98.8 97 25 143/78 94 Nasal Cannula 3.0 04/13/17 07:23 89 20 98 Nasal Cannula 3.0 32 04/13/17 07:22 Nasal Cannula 3.0 32 04/13/17 07:15 87 20 94 Nasal Cannula 3.0 32 04/13/17 07:14 94 Nasal Cannula 3.0 32 04/13/17 07:00 89 21 146/71 97 Nasal Cannula 3.0 04/13/17 06:00 92 21 145/77 93 Nasal Cannula 3.0 04/13/17 05:47 82 147/71 04/13/17 05:00 82 23 147/71 93 Nasal Cannula 3.0 04/13/17 04:00 98.7 86 20 132/67 93 Nasal Cannula 3.0 04/13/17 04:00 89 04/13/17 03:52 86 20 98 Nasal Cannula 3.0 32 04/13/17 03:45 89 20 95 Nasal Cannula 3.0 32 04/13/17 03:45 32 04/13/17 03:00 87 23 143/74 94 Nasal Cannula 3.0 04/13/17 02:00 81 24 122/66 93 Nasal Cannula 3.0 04/13/17 01:00 85 21 122/65 93 Nasal Cannula 3.0 04/13/17 00:00 98.9 90 20 121/61 94 Nasal Cannula 3.0 04/13/17 00:00 87 04/12/17 23:39 89 20 96 Nasal Cannula 3.0 32 04/12/17 23:34 82 22 93 Nasal Cannula 3.0 32 04/12/17 23:00 88 21 127/67 93 Nasal Cannula 3.0 04/12/17 22:00 94 24 150/77 94 Nasal Cannula 3.0 04/12/17 21:46 99 151/84 04/12/17 21:00 101 24 126/86 93 Nasal Cannula 3.0 04/12/17 20:00 99 04/12/17 20:00 99.2 99 20 151/84 91 Nasal Cannula 3.0 04/12/17 19:31 92 22 97 Nasal Cannula 3.0 32 04/12/17 19:21 102 20 94 Nasal Cannula 3.0 32 04/12/17 19:21 94 3.0 32 04/12/17 19:21 Nasal Cannula 3.0 32 04/12/17 19:00 101 21 147/82 92 04/12/17 18:46 109 119/64 04/12/17 18:00 122 20 164/81 97 04/12/17 17:00 122 20 166/77 96 04/12/17 16:00 3.0 04/12/17 16:00 103 04/12/17 16:00 99.0 110 20 149/76 91 04/12/17 15:00 99 20 133/71 91 04/12/17 14:45 100 26 97 Nasal Cannula 3.0 32 04/12/17 14:34 98 19 92 Nasal Cannula 3.0 32 04/12/17 14:00 97 20 131/68 92 04/12/17 13:00 104 23 120/69 92 04/12/17 12:00 107 04/12/17 12:00 99.0 107 26 127/76 92 04/12/17 11:00 104 33 123/74 92 04/12/17 10:54 95 24 98 Nasal Cannula 3.0 32 Intake and Output 04/12/17 04/13/17 19:00 07:00 Intake Total 300 ml 2187 ml Output Total 2530 ml 2620 ml Balance -2230 ml -433 ml Intake Oral 1070 ml IV Total 300 ml 1117 ml Output Urine Total 2530 ml 2620 ml General Appearance: no acute distress Respiratory/Chest: decreased breath sounds, expiratory wheezing Cardiovascular: normal rate Microbiology Date/Time Source Procedure Growth Status 04/11/17 15:05 Urine,Clean Catch Urine Culture - Preliminary Gram Negative Bacillus 1 Resulted 04/11/17 16:50 Rectum VRE Culture - Final NO VANCOMYCIN RESISTANT ENTEROCOCCUS ... Complete Laboratory Tests 04/12/17 14:25: Potassium Level 4.2, C-Reactive Protein, Quantitative < 0.4 04/13/17 05:25: Potassium Level 3.9, White Blood Count 11.7H, Red Blood Count 4.74, Hemoglobin 13.7L, Hematocrit 40.7L, Mean Corpuscular Volume 86, Mean Corpuscular Hemoglobin 28.9, Mean Corpuscular Hemoglobin Concent 33.7, Red Cell Distribution Width 17.4H, Platelet Count 228, Mean Platelet Volume 6.2L, Neutrophils (%) (Auto) , Lymphocytes (%) (Auto) , Monocytes (%) (Auto) , Eosinophils (%) (Auto) , Basophils (%) (Auto) , Sodium Level 135L, Chloride Level 98, Carbon Dioxide Level 34H, Anion Gap 3L, Blood Urea Nitrogen 19H, Creatinine 0.9, Estimat Glomerular Filtration Rate > 60, Glucose Level 167H, Hemoglobin A1c 6.5H, Uric Acid 4.4, Calcium Level 9.1, Phosphorus Level 2.7, Magnesium Level 1.6L, Total Bilirubin 0.2, Gamma Glutamyl Transpeptidase 32, Aspartate Amino Transf (AST/SGOT) 19, Alanine Aminotransferase (ALT/SGPT) 24, Alkaline Phosphatase 62, Pro-B-Type Natriuretic Peptide 265H, Total Protein 6.3L , Albumin 2.9L, Globulin 3.4, Albumin/Globulin Ratio 0.9L, Triglycerides Level 30, Cholesterol Level 168, LDL Cholesterol 83, HDL Cholesterol 82H, Cholesterol/ HDL Ratio 2.0L, Thyroid Stimulating Hormone (TSH) 0.423 Current Medications Medications (Trade) Dose Ordered Sig/Quoc Route PRN Reason Start Time Stop Time Status Last Admin Dose Admin Albuterol/ Ipratropium (Albuterol/ Ipratropium) 3 ml Q2H PRN HHN Shortness of Breath 04/12/17 09:30 04/17/17 09:29 04/12/17 09:39 Albuterol/ Ipratropium (Albuterol/ Ipratropium) 3 ml Q4HRT HHN 04/11/17 23:00 04/16/17 22:59 04/13/17 07:20 Azithromycin 250 mg/Dextrose 275 ml @ 275 mls/hr Q24HRS IV 04/11/17 23:00 04/17/17 23:59 04/12/17 23:01 Ceftriaxone Sodium 1 gm/ Sodium Chloride 55 ml @ 110 mls/hr Q24H IVPB 04/11/17 22:30 04/18/17 22:29 04/12/17 21:56 Dextrose/Sodium Chloride 1,000 ml @ 75 mls/hr [id number] IV 04/12/17 14:30 05/12/17 14:29 04/13/17 04:59 Diltiazem HCl (Cardizem) 30 mg EVERY 8 HOURS ORAL 04/12/17 18:00 05/12/17 17:59 04/13/17 05:47 Methylprednisolone Sodium Succinate (Solu-MEDROL) 40 mg EVERY 6 HOURS IVP 04/12/17 00:00 05/12/17 00:00 04/13/17 05:46 Pantoprazole (Protonix) 40 mg Q12HR IVP 04/12/17 21:00 05/11/17 21:59 04/13/17 08:31 DENISA MALONEY Apr 13, 2017 10:45
--- NOTE | 2017-04-13 11:20 | Nephrology Progress Note ---
Assessment/Plan Problem List: (1) Respiratory failure with hypercapnia (2) COPD exacerbation (3) Hyperkalemia (4) Diabetes mellitus Assessment Currently remains in ICU Was extubated High K possibly hemolysis. resolved Other: - Acute respiratory failure. - Chronic obstructive pulmonary disease, hypercapnic type. - Possible drug abuse, although toxicology screen was negative. He responded favorably to Narcan. - Urinary tract infection. - Mild HgA1C elevation Plan stable from renal stand continue per pulmonary. to telemetry? Mag supplements medium CHO diet Subjective ROS Limited/Unobtainable: No Objective Objective Last 24 Hour Vital Signs Date Time Temp Pulse Resp B/P (MAP) Pulse Ox O2 Delivery O2 Flow Rate FiO2 04/13/17 11:04 87 20 98 Nasal Cannula 3.0 32 04/13/17 11:00 97.7 87 20 148/73 95 Nasal Cannula 3.0 04/13/17 10:45 88 23 96 Nasal Cannula 3.0 32 04/13/17 10:00 97.7 94 23 156/75 91 Nasal Cannula 3.0 04/13/17 09:00 98.3 97 19 146/78 93 Nasal Cannula 3.0 04/13/17 08:00 92 04/13/17 08:00 98.8 97 25 143/78 94 Nasal Cannula 3.0 04/13/17 07:23 89 20 98 Nasal Cannula 3.0 32 04/13/17 07:22 Nasal Cannula 3.0 32 04/13/17 07:15 87 20 94 Nasal Cannula 3.0 32 04/13/17 07:14 94 Nasal Cannula 3.0 32 04/13/17 07:00 89 21 146/71 97 Nasal Cannula 3.0 04/13/17 06:00 92 21 145/77 93 Nasal Cannula 3.0 04/13/17 05:47 82 147/71 04/13/17 05:00 82 23 147/71 93 Nasal Cannula 3.0 04/13/17 04:00 98.7 86 20 132/67 93 Nasal Cannula 3.0 04/13/17 04:00 89 04/13/17 03:52 86 20 98 Nasal Cannula 3.0 32 04/13/17 03:45 89 20 95 Nasal Cannula 3.0 32 04/13/17 03:45 32 04/13/17 03:00 87 23 143/74 94 Nasal Cannula 3.0 04/13/17 02:00 81 24 122/66 93 Nasal Cannula 3.0 04/13/17 01:00 85 21 122/65 93 Nasal Cannula 3.0 04/13/17 00:00 98.9 90 20 121/61 94 Nasal Cannula 3.0 04/13/17 00:00 87 04/12/17 23:39 89 20 96 Nasal Cannula 3.0 32 04/12/17 23:34 82 22 93 Nasal Cannula 3.0 32 04/12/17 23:00 88 21 127/67 93 Nasal Cannula 3.0 04/12/17 22:00 94 24 150/77 94 Nasal Cannula 3.0 04/12/17 21:46 99 151/84 04/12/17 21:00 101 24 126/86 93 Nasal Cannula 3.0 04/12/17 20:00 99 04/12/17 20:00 99.2 99 20 151/84 91 Nasal Cannula 3.0 04/12/17 19:31 92 22 97 Nasal Cannula 3.0 32 04/12/17 19:21 102 20 94 Nasal Cannula 3.0 32 04/12/17 19:21 94 3.0 32 04/12/17 19:21 Nasal Cannula 3.0 32 04/12/17 19:00 101 21 147/82 92 04/12/17 18:46 109 119/64 04/12/17 18:00 122 20 164/81 97 04/12/17 17:00 122 20 166/77 96 04/12/17 16:00 3.0 04/12/17 16:00 103 04/12/17 16:00 99.0 110 20 149/76 91 04/12/17 15:00 99 20 133/71 91 04/12/17 14:45 100 26 97 Nasal Cannula 3.0 32 04/12/17 14:34 98 19 92 Nasal Cannula 3.0 32 04/12/17 14:00 97 20 131/68 92 04/12/17 13:00 104 23 120/69 92 04/12/17 12:00 107 04/12/17 12:00 99.0 107 26 127/76 92 Intake and Output 04/12/17 04/13/17 19:00 07:00 Intake Total 300 ml 2187 ml Output Total 2530 ml 2620 ml Balance -2230 ml -433 ml Intake Oral 1070 ml IV Total 300 ml 1117 ml Output Urine Total 2530 ml 2620 ml Laboratory Tests 04/12/17 14:25: Potassium Level 4.2, C-Reactive Protein, Quantitative < 0.4 04/13/17 05:25: Potassium Level 3.9, White Blood Count 11.7H, Red Blood Count 4.74, Hemoglobin 13.7L, Hematocrit 40.7L, Mean Corpuscular Volume 86, Mean Corpuscular Hemoglobin 28.9, Mean Corpuscular Hemoglobin Concent 33.7, Red Cell Distribution Width 17.4H, Platelet Count 228, Mean Platelet Volume 6.2L, Neutrophils (%) (Auto) , Lymphocytes (%) (Auto) , Monocytes (%) (Auto) , Eosinophils (%) (Auto) , Basophils (%) (Auto) , Sodium Level 135L, Chloride Level 98, Carbon Dioxide Level 34H, Anion Gap 3L, Blood Urea Nitrogen 19H, Creatinine 0.9, Estimat Glomerular Filtration Rate > 60, Glucose Level 167H, Hemoglobin A1c 6.5H, Uric Acid 4.4, Calcium Level 9.1, Phosphorus Level 2.7, Magnesium Level 1.6L, Total Bilirubin 0.2, Gamma Glutamyl Transpeptidase 32, Aspartate Amino Transf (AST/SGOT) 19, Alanine Aminotransferase (ALT/SGPT) 24, Alkaline Phosphatase 62, Pro-B-Type Natriuretic Peptide 265H, Total Protein 6.3L , Albumin 2.9L, Globulin 3.4, Albumin/Globulin Ratio 0.9L, Triglycerides Level 30, Cholesterol Level 168, LDL Cholesterol 83, HDL Cholesterol 82H, Cholesterol/ HDL Ratio 2.0L, Thyroid Stimulating Hormone (TSH) 0.423 Height (Feet): 5 Height (Inches): 10.00 Weight (Pounds): 182 General Appearance: no apparent distress Cardiovascular: tachycardia - mild Respiratory/Chest: decreased breath sounds Abdomen: soft Neurologic: other - tremors CHIP DINH Apr 13, 2017 11:20
--- NOTE | 2017-04-13 11:35 | Infectious Diseases Prog Note ---
Assessment/Plan Assessment/Plan A; Complicated UTI COPD exacerbation Hypercapnic respiratory failure Nicotine dependence Schizophrenia P: Cpntinue Zithromax & Rocephin Will f/u cultures Subjective ROS Limited/Unobtainable: No Constitutional: Reports: no symptoms HEENT: Reports: other - headache Respiratory: Reports: dry cough Gastrointestinal/Abdominal: Reports: no symptoms Genitourinary: Reports: no symptoms Allergies: Coded Allergies: HALOPERIDOL (Verified Allergy, Unknown, 04/12/17) THIORIDAZINE (Verified Allergy, Unknown, 04/12/17) TIOTROPIUM (Verified Allergy, Unknown, 04/12/17) Objective Vital Signs Last 24 Hour Vital Signs Date Time Temp Pulse Resp B/P (MAP) Pulse Ox O2 Delivery O2 Flow Rate FiO2 04/13/17 11:04 87 20 98 Nasal Cannula 3.0 32 04/13/17 11:00 97.7 87 20 148/73 95 Nasal Cannula 3.0 04/13/17 10:45 88 23 96 Nasal Cannula 3.0 32 04/13/17 10:00 97.7 94 23 156/75 91 Nasal Cannula 3.0 04/13/17 09:00 98.3 97 19 146/78 93 Nasal Cannula 3.0 04/13/17 08:00 92 04/13/17 08:00 98.8 97 25 143/78 94 Nasal Cannula 3.0 04/13/17 07:23 89 20 98 Nasal Cannula 3.0 32 04/13/17 07:22 Nasal Cannula 3.0 32 04/13/17 07:15 87 20 94 Nasal Cannula 3.0 32 04/13/17 07:14 94 Nasal Cannula 3.0 32 04/13/17 07:00 89 21 146/71 97 Nasal Cannula 3.0 04/13/17 06:00 92 21 145/77 93 Nasal Cannula 3.0 04/13/17 05:47 82 147/71 04/13/17 05:00 82 23 147/71 93 Nasal Cannula 3.0 04/13/17 04:00 98.7 86 20 132/67 93 Nasal Cannula 3.0 04/13/17 04:00 89 04/13/17 03:52 86 20 98 Nasal Cannula 3.0 32 04/13/17 03:45 89 20 95 Nasal Cannula 3.0 32 04/13/17 03:45 32 04/13/17 03:00 87 23 143/74 94 Nasal Cannula 3.0 04/13/17 02:00 81 24 122/66 93 Nasal Cannula 3.0 04/13/17 01:00 85 21 122/65 93 Nasal Cannula 3.0 04/13/17 00:00 98.9 90 20 121/61 94 Nasal Cannula 3.0 04/13/17 00:00 87 04/12/17 23:39 89 20 96 Nasal Cannula 3.0 32 04/12/17 23:34 82 22 93 Nasal Cannula 3.0 32 04/12/17 23:00 88 21 127/67 93 Nasal Cannula 3.0 04/12/17 22:00 94 24 150/77 94 Nasal Cannula 3.0 04/12/17 21:46 99 151/84 04/12/17 21:00 101 24 126/86 93 Nasal Cannula 3.0 04/12/17 20:00 99 04/12/17 20:00 99.2 99 20 151/84 91 Nasal Cannula 3.0 04/12/17 19:31 92 22 97 Nasal Cannula 3.0 32 04/12/17 19:21 102 20 94 Nasal Cannula 3.0 32 04/12/17 19:21 94 3.0 32 04/12/17 19:21 Nasal Cannula 3.0 32 04/12/17 19:00 101 21 147/82 92 04/12/17 18:46 109 119/64 04/12/17 18:00 122 20 164/81 97 04/12/17 17:00 122 20 166/77 96 04/12/17 16:00 3.0 04/12/17 16:00 103 04/12/17 16:00 99.0 110 20 149/76 91 04/12/17 15:00 99 20 133/71 91 04/12/17 14:45 100 26 97 Nasal Cannula 3.0 32 04/12/17 14:34 98 19 92 Nasal Cannula 3.0 32 04/12/17 14:00 97 20 131/68 92 04/12/17 13:00 104 23 120/69 92 04/12/17 12:00 107 04/12/17 12:00 99.0 107 26 127/76 92 Height (Feet): 5 Height (Inches): 10.00 Weight (Pounds): 182 General Appearance: no acute distress HEENT: mucous membranes moist Respiratory/Chest: decreased breath sounds Cardiovascular: normal rate Abdomen: soft, non tender Genitourinary: other - suprapubic catheter Extremities: no edema Neurologic/Psychiatric: alert, oriented x 3, responsive Microbiology Date/Time Source Procedure Growth Status 04/11/17 15:05 Urine,Clean Catch Urine Culture - Preliminary Gram Negative Bacillus 1 Resulted 04/11/17 16:50 Rectum VRE Culture - Final NO VANCOMYCIN RESISTANT ENTEROCOCCUS ... Complete Laboratory Tests Test 04/12/17 14:25 04/13/17 05:25 Potassium Level 4.2 MMOL/L (3.5-5.1) 3.9 MMOL/L (3.5-5.1) C-Reactive Protein, Quantitative < 0.4 mg/dL (0.00-0.90) White Blood Count 11.7 K/UL (4.8-10.8) H Red Blood Count 4.74 M/UL (4.70-6.10) Hemoglobin 13.7 G/DL (14.2-18.0) L Hematocrit 40.7 % (42.0-52.0) L Mean Corpuscular Volume 86 FL (80-99) Mean Corpuscular Hemoglobin 28.9 PG (27.0-31.0) Mean Corpuscular Hemoglobin Concent 33.7 G/DL (32.0-36.0) Red Cell Distribution Width 17.4 % (11.6-14.8) H Platelet Count 228 K/UL (150-450) Mean Platelet Volume 6.2 FL (6.5-10.1) L Neutrophils (%) (Auto) % (45.0-75.0) Lymphocytes (%) (Auto) % (20.0-45.0) Monocytes (%) (Auto) % (1.0-10.0) Eosinophils (%) (Auto) % (0.0-3.0) Basophils (%) (Auto) % (0.0-2.0) Sodium Level 135 MMOL/L (136-145) L Chloride Level 98 MMOL/L (98-107) Carbon Dioxide Level 34 MMOL/L (21-32) H Anion Gap 3 mmol/L (5-15) L Blood Urea Nitrogen 19 mg/dL (7-18) H Creatinine 0.9 MG/DL (0.55-1.30) Estimat Glomerular Filtration Rate > 60 mL/min (>60) Glucose Level 167 MG/DL (74-106) H Hemoglobin A1c 6.5 % (4.3-6.0) H Uric Acid 4.4 MG/DL (2.6-7.2) Calcium Level 9.1 MG/DL (8.5-10.1) Phosphorus Level 2.7 MG/DL (2.5-4.9) Magnesium Level 1.6 MG/DL (1.8-2.4) L Total Bilirubin 0.2 MG/DL (0.2-1.0) Gamma Glutamyl Transpeptidase 32 U/L (5-85) Aspartate Amino Transf (AST/SGOT) 19 U/L (15-37) Alanine Aminotransferase (ALT/SGPT) 24 U/L (12-78) Alkaline Phosphatase 62 U/L (46-116) Pro-B-Type Natriuretic Peptide 265 pg/mL (0-125) H Total Protein 6.3 G/DL (6.4-8.2) L Albumin 2.9 G/DL (3.4-5.0) L Globulin 3.4 g/dL Albumin/Globulin Ratio 0.9 (1.0-2.7) L Triglycerides Level 30 MG/DL (30-150) Cholesterol Level 168 MG/DL (< 200) LDL Cholesterol 83 mg/dL (<100) HDL Cholesterol 82 MG/DL (40-60) H Cholesterol/HDL Ratio 2.0 (3.3-4.4) L Thyroid Stimulating Hormone (TSH) 0.423 uiU/mL (0.358-3.740) Current Medications Medications (Trade) Dose Ordered Sig/Quoc Route PRN Reason Start Time Stop Time Status Last Admin Dose Admin Albuterol/ Ipratropium (Albuterol/ Ipratropium) 3 ml Q2H PRN HHN Shortness of Breath 04/12/17 09:30 04/17/17 09:29 04/12/17 09:39 Albuterol/ Ipratropium (Albuterol/ Ipratropium) 3 ml Q4HRT HHN 04/11/17 23:00 04/16/17 22:59 04/13/17 10:48 Azithromycin (Zithromax) 250 mg DAILY ORAL 04/13/17 12:00 04/20/17 11:59 Ceftriaxone Sodium 1 gm/ Sodium Chloride 55 ml @ 110 mls/hr Q24H IVPB 04/11/17 22:30 04/18/17 22:29 04/12/17 21:56 Dextrose/Sodium Chloride 1,000 ml @ 50 mls/hr Q20H IV 04/13/17 12:00 05/13/17 11:59 Diltiazem HCl (Cardizem) 30 mg EVERY 8 HOURS ORAL 04/12/17 18:00 05/12/17 17:59 04/13/17 05:47 Methylprednisolone Sodium Succinate (Solu-MEDROL) 20 mg Q8HR IVP 04/13/17 14:00 05/12/17 00:00 Metoprolol Tartrate (Lopressor) 12.5 mg ONCE ONCE ORAL 04/13/17 11:30 04/13/17 11:31 UNV Metoprolol Tartrate (Lopressor) 12.5 mg Q12HR ORAL 04/13/17 21:00 05/13/17 20:59 UNV Pantoprazole (Protonix) 40 mg EVERY 12 HOURS ORAL 04/13/17 21:00 05/13/17 20:59 Tamsulosin HCl (Flomax) 0.4 mg BEDTIME ORAL 04/13/17 21:00 05/13/17 20:59 UNV JULIETTE ACOSTA Apr 13, 2017 11:35
[2017-04-13] MEDS: Azithromycin 250mg tab ORAL SCH (11:58)
[2017-04-13] MEDS ORDERED: Metoprolol Tartrate 12.5mg TAB ORAL ONE (12:00)
--- NOTE | 2017-04-13 14:18 | General Progress Note ---
Assessment/Plan Problem List: (1) Respiratory failure ICD Codes: J96.90 - Respiratory failure, unspecified, unspecified whether with hypoxia or hypercapnia SNOMED: 427713539 (2) COPD exacerbation ICD Codes: J44.1 - Chronic obstructive pulmonary disease with (acute) exacerbation SNOMED: 295384410 (3) Hyperkalemia ICD Codes: E87.5 - Hyperkalemia SNOMED: 53432182 (4) Respiratory failure with hypercapnia ICD Codes: J96.92 - Respiratory failure, unspecified with hypercapnia SNOMED: 096861012 (5) Diabetes mellitus ICD Codes: E11.9 - Type 2 diabetes mellitus without complications SNOMED: 09957600 Status: progressing Assessment/Plan extubated resp failure due to copd exacerbation psych patient alert Subjective ROS Limited/Unobtainable: Yes Allergies: Coded Allergies: HALOPERIDOL (Verified Allergy, Unknown, 04/12/17) THIORIDAZINE (Verified Allergy, Unknown, 04/12/17) TIOTROPIUM (Verified Allergy, Unknown, 04/12/17) Objective Last 24 Hour Vital Signs Date Time Temp Pulse Resp B/P (MAP) Pulse Ox O2 Delivery O2 Flow Rate FiO2 04/13/17 14:00 98.5 85 19 150/75 92 Nasal Cannula 3.0 04/13/17 13:58 91 136/77 04/13/17 13:00 98.4 88 22 136/77 96 Nasal Cannula 3.0 04/13/17 12:00 102 151/84 04/13/17 12:00 98.5 96 24 151/84 93 Nasal Cannula 3.0 04/13/17 12:00 91 04/13/17 11:04 87 20 98 Nasal Cannula 3.0 32 04/13/17 11:00 97.7 87 20 148/73 95 Nasal Cannula 3.0 04/13/17 10:45 88 23 96 Nasal Cannula 3.0 32 04/13/17 10:00 97.7 94 23 156/75 91 Nasal Cannula 3.0 04/13/17 09:00 98.3 97 19 146/78 93 Nasal Cannula 3.0 04/13/17 08:00 92 04/13/17 08:00 98.8 97 25 143/78 94 Nasal Cannula 3.0 04/13/17 07:23 89 20 98 Nasal Cannula 3.0 32 04/13/17 07:22 Nasal Cannula 3.0 32 04/13/17 07:15 87 20 94 Nasal Cannula 3.0 32 04/13/17 07:14 94 Nasal Cannula 3.0 32 04/13/17 07:00 89 21 146/71 97 Nasal Cannula 3.0 04/13/17 06:00 92 21 145/77 93 Nasal Cannula 3.0 04/13/17 05:47 82 147/71 04/13/17 05:00 82 23 147/71 93 Nasal Cannula 3.0 04/13/17 04:00 98.7 86 20 132/67 93 Nasal Cannula 3.0 04/13/17 04:00 89 04/13/17 03:52 86 20 98 Nasal Cannula 3.0 32 04/13/17 03:45 89 20 95 Nasal Cannula 3.0 32 04/13/17 03:45 32 04/13/17 03:00 87 23 143/74 94 Nasal Cannula 3.0 04/13/17 02:00 81 24 122/66 93 Nasal Cannula 3.0 04/13/17 01:00 85 21 122/65 93 Nasal Cannula 3.0 04/13/17 00:00 98.9 90 20 121/61 94 Nasal Cannula 3.0 04/13/17 00:00 87 04/12/17 23:39 89 20 96 Nasal Cannula 3.0 32 04/12/17 23:34 82 22 93 Nasal Cannula 3.0 32 04/12/17 23:00 88 21 127/67 93 Nasal Cannula 3.0 04/12/17 22:00 94 24 150/77 94 Nasal Cannula 3.0 04/12/17 21:46 99 151/84 04/12/17 21:00 101 24 126/86 93 Nasal Cannula 3.0 04/12/17 20:00 99 04/12/17 20:00 99.2 99 20 151/84 91 Nasal Cannula 3.0 04/12/17 19:31 92 22 97 Nasal Cannula 3.0 32 04/12/17 19:21 102 20 94 Nasal Cannula 3.0 32 04/12/17 19:21 94 3.0 32 04/12/17 19:21 Nasal Cannula 3.0 32 04/12/17 19:00 101 21 147/82 92 04/12/17 18:46 109 119/64 2/5/18 18:00 122 20 164/81 97 04/12/17 17:00 122 20 166/77 96 04/12/17 16:00 3.0 04/12/17 16:00 103 04/12/17 16:00 99.0 110 20 149/76 91 04/12/17 15:00 99 20 133/71 91 04/12/17 14:45 100 26 97 Nasal Cannula 3.0 32 04/12/17 14:34 98 19 92 Nasal Cannula 3.0 32 Intake and Output 04/12/17 04/13/17 19:00 07:00 Intake Total 300 ml 2187 ml Output Total 2530 ml 2620 ml Balance -2230 ml -433 ml Intake Oral 1070 ml IV Total 300 ml 1117 ml Output Urine Total 2530 ml 2620 ml Laboratory Tests 04/12/17 14:25: Potassium Level 4.2, C-Reactive Protein, Quantitative < 0.4 04/13/17 05:25: Potassium Level 3.9, White Blood Count 11.7H, Red Blood Count 4.74, Hemoglobin 13.7L, Hematocrit 40.7L, Mean Corpuscular Volume 86, Mean Corpuscular Hemoglobin 28.9, Mean Corpuscular Hemoglobin Concent 33.7, Red Cell Distribution Width 17.4H, Platelet Count 228, Mean Platelet Volume 6.2L, Neutrophils (%) (Auto) , Lymphocytes (%) (Auto) , Monocytes (%) (Auto) , Eosinophils (%) (Auto) , Basophils (%) (Auto) , Sodium Level 135L, Chloride Level 98, Carbon Dioxide Level 34H, Anion Gap 3L, Blood Urea Nitrogen 19H, Creatinine 0.9, Estimat Glomerular Filtration Rate > 60, Glucose Level 167H, Hemoglobin A1c 6.5H, Uric Acid 4.4, Calcium Level 9.1, Phosphorus Level 2.7, Magnesium Level 1.6L, Total Bilirubin 0.2, Gamma Glutamyl Transpeptidase 32, Aspartate Amino Transf (AST/SGOT) 19, Alanine Aminotransferase (ALT/SGPT) 24, Alkaline Phosphatase 62, Pro-B-Type Natriuretic Peptide 265H, Total Protein 6.3L , Albumin 2.9L, Globulin 3.4, Albumin/Globulin Ratio 0.9L, Triglycerides Level 30, Cholesterol Level 168, LDL Cholesterol 83, HDL Cholesterol 82H, Cholesterol/ HDL Ratio 2.0L, Thyroid Stimulating Hormone (TSH) 0.423 Height (Feet): 5 Height (Inches): 10.00 Weight (Pounds): 182 Neck: supple Cardiovascular: normal rate Respiratory/Chest: lungs clear Abdomen: soft Jacqueline Rodriguez MD Apr 13, 2017 14:18
[2017-04-13] MEDS ORDERED: Tamsulosin 0.4mg cap ORAL SCH (21:00)
[2017-04-13] MEDS: Metoprolol Tartrate 12.5mg TAB ORAL SCH (21:22)
--- NOTE | 2017-04-13 21:30 | History and Physical Report ---
DATE OF ADMISSION: 04/11/2017 HISTORY OF PRESENT ILLNESS: The patient came in via 911, was lethargic at the custodial, had respiratory failure, had COPD exacerbation and was intubated by the ER doctor. He was transferred to the ICU, Dr. Celestin saw the patient, and gave some orders as well. The patient was admitted for COPD exacerbation and was started on methylprednisolone. The patient is intubated. PAST MEDICAL HISTORY: Severe COPD, anxiety, schizophrenia, GERD, neuropathy, depression, and BPH. PAST SURGICAL HISTORY: None known. MEDICATIONS: Albuterol, Norvasc, BuSpar, famotidine, gabapentin, mirtazapine, and Flomax. ALLERGIES: Haldol, Thorazine, and tiotropium. FAMILY HISTORY: Unable to obtain. SOCIAL HISTORY: Unable to obtain. REVIEW OF SYSTEMS: Unable to obtain. PHYSICAL EXAMINATION: VITAL SIGNS: Temperature not recorded, pulse is 122, and blood pressure is 166/77. HEENT: PERRLA. CHEST: Rhonchi, rales, and wheezing with poor air exchange bilaterally. CARDIOVASCULAR: Tachycardic. GASTROINTESTINAL: Soft. Positive bowel sounds. EXTREMITIES: No edema. Reflexes equal on both sides. NEUROLOGICAL: Grimaces to noxious stimuli. LABORATORY DATA: Laboratory ayala, WBC of 7.4, hemoglobin of 14.5, and platelets 208,000. Sodium 133, potassium 6, BUN of 16, creatinine 1, and glucose of 178. ASSESSMENT AND PLAN: 1. Hyperkalemia. 2. Chronic obstructive pulmonary disease exacerbation. 3. Respiratory failure. 4. Intubation. 5. I have asked Dr. Celestin, Dr. Chance, Dr. Cedillo, Dr. Guzman, and Dr. Lou to see the patient for the altered mental status, respiratory failure, hyperkalemia, rule out any infectious etiology as well as rule out any MIs. Jacqueline Rodriguez M.D. DR: ERIC JOB#: [id number] CC:
[2017-04-13] MEDS: cefTRIAXone 1 GM in NS 55 ML IVPB SCH (22:24)
[2017-04-14] VITALS (13 sets, daily range): BP systolic 109–149; BP diastolic 53–91
[2017-04-14] MEDS: Albuterol/Ipratropium 3ml neb HHN SCH ×6 (03:19→23:20)
[2017-04-14] MEDS: dilTIAZem HCl 30mg tab ORAL SCH ×3 (05:46→21:53)
[2017-04-14] MEDS: Solu-MEDROL 40mg Inj IVP SCH (05:46)
[2017-04-14] MEDS: D5NS 1,000 ML IV SCH ×2 (06:45→11:30)
[2017-04-14] MEDS: Azithromycin 250mg tab ORAL SCH (08:23)
[2017-04-14] MEDS: Metoprolol Tartrate 12.5mg TAB ORAL SCH ×2 (08:23→21:52)
--- NOTE | 2017-04-14 08:43 | Pulmonology Progress Note ---
Assessment/Plan Assessment/Plan 1. Acute respiratory failure. 2. Chronic obstructive pulmonary disease, hypercapnic type. 3. Possible drug abuse. 4. Urinary tract infection, pseudomonas change to Cefepime PO steroids, taper Symbicort out of ICU Subjective Respiratory: Reports: productive cough, Denies: shortness of breath Allergies: Coded Allergies: HALOPERIDOL (Verified Allergy, Unknown, 04/12/17) THIORIDAZINE (Verified Allergy, Unknown, 04/12/17) TIOTROPIUM (Verified Allergy, Unknown, 04/12/17) Objective Last 24 Hour Vital Signs Date Time Temp Pulse Resp B/P (MAP) Pulse Ox O2 Delivery O2 Flow Rate FiO2 04/14/17 08:23 78 127/54 04/14/17 07:00 91 20 135/77 98 Nasal Cannula 3.0 04/14/17 06:38 98.0 04/14/17 06:00 81 20 117/53 98 Nasal Cannula 3.0 04/14/17 05:46 71 111/68 04/14/17 05:00 76 20 130/76 98 Nasal Cannula 3.0 04/14/17 04:00 98.0 75 26 111/68 98 Nasal Cannula 3.0 04/14/17 04:00 71 04/14/17 03:28 77 22 98 Nasal Cannula 3.0 32 04/14/17 03:18 75 25 97 Nasal Cannula 2.0 28 04/14/17 03:00 81 24 124/61 94 Nasal Cannula 3.0 04/14/17 02:00 81 24 110/53 94 Nasal Cannula 3.0 04/14/17 01:00 84 26 109/56 92 Nasal Cannula 3.0 04/14/17 00:00 86 04/14/17 00:00 98.2 98 21 123/56 98 Nasal Cannula 3.0 04/13/17 23:00 85 26 131/55 94 Nasal Cannula 3.0 04/13/17 22:50 82 24 97 Nasal Cannula 2.0 28 04/13/17 22:42 85 24 91 Nasal Cannula 2.0 28 04/13/17 22:00 85 26 133/60 94 Nasal Cannula 3.0 04/13/17 21:30 88 130/44 04/13/17 21:22 88 130/44 04/13/17 21:00 89 26 130/44 95 Nasal Cannula 3.0 04/13/17 20:00 98.0 26 130/62 98 Nasal Cannula 3.0 04/13/17 20:00 88 04/13/17 19:15 90 20 98 Nasal Cannula 2.0 28 04/13/17 19:06 95 Nasal Cannula 2.0 28 04/13/17 19:06 Nasal Cannula 2.0 28 04/13/17 19:05 88 22 94 Nasal Cannula 2.0 28 04/13/17 19:00 98.5 20 138/88 93 Nasal Cannula 3.0 04/13/17 18:00 98.2 91 21 142/75 94 Nasal Cannula 3.0 04/13/17 17:00 97.5 92 33 146/78 93 Nasal Cannula 3.0 04/13/17 16:00 97.5 90 24 146/75 95 Nasal Cannula 3.0 04/13/17 16:00 81 04/13/17 15:27 88 22 97 Nasal Cannula 3.0 32 04/13/17 15:20 84 22 94 Nasal Cannula 3.0 32 04/13/17 15:00 98.5 90 21 157/79 91 Nasal Cannula 3.0 04/13/17 14:00 98.5 85 19 150/75 92 Nasal Cannula 3.0 04/13/17 13:58 91 136/77 04/13/17 13:00 98.4 88 22 136/77 96 Nasal Cannula 3.0 04/13/17 12:00 102 151/84 04/13/17 12:00 98.5 96 24 151/84 93 Nasal Cannula 3.0 04/13/17 12:00 91 04/13/17 11:04 87 20 98 Nasal Cannula 3.0 32 04/13/17 11:00 97.7 87 20 148/73 95 Nasal Cannula 3.0 04/13/17 10:45 88 23 96 Nasal Cannula 3.0 32 04/13/17 10:00 97.7 94 23 156/75 91 Nasal Cannula 3.0 04/13/17 09:00 98.3 97 19 146/78 93 Nasal Cannula 3.0 Intake and Output 04/13/17 04/14/17 19:00 07:00 Intake Total 2726.667 ml 1255 ml Output Total 4235 ml 2555 ml Balance -1508.333 ml -1300 ml Intake Oral 2075 ml 600 ml IV Total 651.667 ml 655 ml Output Urine Total 4235 ml 2555 ml # Bowel Movements 3 General Appearance: no acute distress Respiratory/Chest: lungs clear, decreased breath sounds Cardiovascular: normal rate Microbiology Date/Time Source Procedure Growth Status 04/11/17 15:05 Urine,Clean Catch Urine Culture - Final Pseudomonas Aeruginosa Complete 04/11/17 16:50 Rectum VRE Culture - Final NO VANCOMYCIN RESISTANT ENTEROCOCCUS ... Complete Current Medications Medications (Trade) Dose Ordered Sig/Quoc Route PRN Reason Start Time Stop Time Status Last Admin Dose Admin Acetaminophen (Tylenol) 650 mg Q4H PRN ORAL Mild Pain/Temp > 100.5 04/13/17 11:45 05/13/17 11:44 04/14/17 05:39 Albuterol/ Ipratropium (Albuterol/ Ipratropium) 3 ml Q2H PRN HHN Shortness of Breath 04/12/17 09:30 04/17/17 09:29 04/12/17 09:39 Albuterol/ Ipratropium (Albuterol/ Ipratropium) 3 ml Q4HRT HHN 04/11/17 23:00 04/16/17 22:59 04/14/17 07:17 Azithromycin (Zithromax) 250 mg DAILY ORAL 04/13/17 12:00 04/20/17 11:59 04/14/17 08:23 Ceftriaxone Sodium 1 gm/ Sodium Chloride 55 ml @ 110 mls/hr Q24H IVPB 04/11/17 22:30 04/18/17 22:29 04/13/17 22:24 Dextrose/Sodium Chloride 1,000 ml @ 50 mls/hr Q20H IV 04/13/17 12:00 05/13/17 11:59 04/14/17 06:45 Diltiazem HCl (Cardizem) 30 mg EVERY 8 HOURS ORAL 04/12/17 18:00 05/12/17 17:59 04/14/17 05:46 Methylprednisolone Sodium Succinate (Solu-MEDROL) 20 mg Q8HR IVP 04/13/17 14:00 05/12/17 00:00 04/14/17 05:46 Metoprolol Tartrate (Lopressor) 12.5 mg Q12HR ORAL 04/13/17 21:00 05/13/17 20:59 04/14/17 08:23 Pantoprazole (Protonix) 40 mg EVERY 12 HOURS ORAL 04/13/17 21:00 05/13/17 20:59 04/14/17 08:23 Tamsulosin HCl (Flomax) 0.4 mg BEDTIME ORAL 04/13/17 21:00 05/13/17 20:59 04/13/17 21:21 DENISA MALONEY Apr 14, 2017 08:42
[2017-04-14] MEDS ORDERED: Cefepime HCl 1 GM in NS 55 ML IVPB SCH (09:30)
--- NOTE | 2017-04-14 10:47 | Infectious Diseases Prog Note ---
Assessment/Plan Assessment/Plan A; Complicated UTI with pseudomonas COPD exacerbation Hypercapnic respiratory failure Nicotine dependence Schizophrenia P: Continue Zithromax & Cefepime Will f/u cultures Subjective ROS Limited/Unobtainable: No Constitutional: Reports: no symptoms, other - doing better, transferred out of ICU Respiratory: Reports: no symptoms Cardiovascular: Reports: no symptoms Gastrointestinal/Abdominal: Reports: no symptoms Genitourinary: Reports: no symptoms Allergies: Coded Allergies: HALOPERIDOL (Verified Allergy, Unknown, 04/12/17) THIORIDAZINE (Verified Allergy, Unknown, 04/12/17) TIOTROPIUM (Verified Allergy, Unknown, 04/12/17) Objective Vital Signs Last 24 Hour Vital Signs Date Time Temp Pulse Resp B/P (MAP) Pulse Ox O2 Delivery O2 Flow Rate FiO2 04/14/17 09:00 76 20 130/58 96 Nasal Cannula 1.0 04/14/17 08:23 78 127/54 04/14/17 08:00 97.8 89 20 127/54 97 Nasal Cannula 3.0 04/14/17 07:48 94 04/14/17 07:00 91 20 135/77 98 Nasal Cannula 3.0 04/14/17 06:38 98.0 04/14/17 06:00 81 20 117/53 98 Nasal Cannula 3.0 04/14/17 05:46 71 111/68 04/14/17 05:00 76 20 130/76 98 Nasal Cannula 3.0 04/14/17 04:00 98.0 75 26 111/68 98 Nasal Cannula 3.0 04/14/17 04:00 71 04/14/17 03:28 77 22 98 Nasal Cannula 3.0 32 04/14/17 03:18 75 25 97 Nasal Cannula 2.0 28 04/14/17 03:00 81 24 124/61 94 Nasal Cannula 3.0 04/14/17 02:00 81 24 110/53 94 Nasal Cannula 3.0 04/14/17 01:00 84 26 109/56 92 Nasal Cannula 3.0 04/14/17 00:00 86 04/14/17 00:00 98.2 98 21 123/56 98 Nasal Cannula 3.0 04/13/17 23:00 85 26 131/55 94 Nasal Cannula 3.0 04/13/17 22:50 82 24 97 Nasal Cannula 2.0 28 04/13/17 22:42 85 24 91 Nasal Cannula 2.0 28 04/13/17 22:00 85 26 133/60 94 Nasal Cannula 3.0 04/13/17 21:30 88 130/44 04/13/17 21:22 88 130/44 04/13/17 21:00 89 26 130/44 95 Nasal Cannula 3.0 04/13/17 20:00 98.0 26 130/62 98 Nasal Cannula 3.0 04/13/17 20:00 88 04/13/17 19:15 90 20 98 Nasal Cannula 2.0 28 04/13/17 19:06 95 Nasal Cannula 2.0 28 04/13/17 19:06 Nasal Cannula 2.0 28 04/13/17 19:05 88 22 94 Nasal Cannula 2.0 28 04/13/17 19:00 98.5 20 138/88 93 Nasal Cannula 3.0 04/13/17 18:00 98.2 91 21 142/75 94 Nasal Cannula 3.0 04/13/17 17:00 97.5 92 33 146/78 93 Nasal Cannula 3.0 04/13/17 16:00 97.5 90 24 146/75 95 Nasal Cannula 3.0 04/13/17 16:00 81 04/13/17 15:27 88 22 97 Nasal Cannula 3.0 32 04/13/17 15:20 84 22 94 Nasal Cannula 3.0 32 04/13/17 15:00 98.5 90 21 157/79 91 Nasal Cannula 3.0 04/13/17 14:00 98.5 85 19 150/75 92 Nasal Cannula 3.0 04/13/17 13:58 91 136/77 04/13/17 13:00 98.4 88 22 136/77 96 Nasal Cannula 3.0 04/13/17 12:00 102 151/84 04/13/17 12:00 98.5 96 24 151/84 93 Nasal Cannula 3.0 04/13/17 12:00 91 04/13/17 11:04 87 20 98 Nasal Cannula 3.0 32 04/13/17 11:00 97.7 87 20 148/73 95 Nasal Cannula 3.0 04/13/17 10:45 88 23 96 Nasal Cannula 3.0 32 Height (Feet): 5 Height (Inches): 10.00 Weight (Pounds): 180 General Appearance: no acute distress HEENT: mucous membranes moist Respiratory/Chest: decreased breath sounds Cardiovascular: normal rate Abdomen: soft, non tender Genitourinary: other - suprapubic catheter Microbiology Date/Time Source Procedure Growth Status 04/11/17 16:50 Nasal Nares MRSA Culture - Final NO METHICILLIN RESISTANT STAPH AUREUS... Complete 04/11/17 15:05 Urine,Clean Catch Urine Culture - Final Pseudomonas Aeruginosa Complete 04/11/17 16:50 Rectum VRE Culture - Final NO VANCOMYCIN RESISTANT ENTEROCOCCUS ... Complete Current Medications Medications (Trade) Dose Ordered Sig/Quoc Route PRN Reason Start Time Stop Time Status Last Admin Dose Admin Acetaminophen (Tylenol) 650 mg Q4H PRN ORAL Mild Pain/Temp > 100.5 04/14/17 11:45 05/13/17 11:44 UNV Albuterol/ Ipratropium (Albuterol/ Ipratropium) 3 ml Q2H PRN N Shortness of Breath 04/14/17 11:30 04/17/17 09:29 UNV Albuterol/ Ipratropium (Albuterol/ Ipratropium) 3 ml Q4HRT HHN 04/14/17 11:00 04/16/17 22:59 UNV Azithromycin (Zithromax) 250 mg DAILY ORAL 04/15/17 09:00 04/20/17 11:59 UNV Budesonide/ Formoterol Fumarate (Symbicort 160/ 4.5) 2 puff TWICE A DAY INH 04/14/17 18:00 05/14/17 09:29 UNV Cefepime HCl 1 gm/ Sodium Chloride 55 ml @ 110 mls/hr EVERY 12 HOURS IVPB 04/14/17 21:00 04/21/17 09:29 UNV Dextrose/Sodium Chloride 1,000 ml @ 50 mls/hr Q20H IV 04/14/17 10:30 05/13/17 11:59 UNV Diltiazem HCl (Cardizem) 30 mg EVERY 8 HOURS ORAL 04/14/17 14:00 05/12/17 17:59 UNV Metoprolol Tartrate (Lopressor) 12.5 mg Q12HR ORAL 04/14/17 21:00 05/13/17 20:59 UNV Pantoprazole (Protonix) 40 mg EVERY 12 HOURS ORAL 04/14/17 21:00 05/13/17 20:59 UNV Prednisone (predniSONE) 20 mg DAILY ORAL 04/15/17 09:00 05/14/17 08:59 UNV Tamsulosin HCl (Flomax) 0.4 mg BEDTIME ORAL 04/14/17 21:00 05/13/17 20:59 UNV JULIETTE ACOSTA Apr 14, 2017 10:47
[2017-04-14] MEDS ORDERED: Albuterol/Ipratropium 3ml neb HHN PRN (11:30)
--- NOTE | 2017-04-14 13:53 | Nephrology Progress Note ---
Assessment/Plan Problem List: (1) Respiratory failure with hypercapnia (2) COPD exacerbation (3) Hyperkalemia (4) Diabetes mellitus Assessment Currently out of ICU Was extubated High K possibly hemolysis. resolved Other: - Acute respiratory failure. - Chronic obstructive pulmonary disease, hypercapnic type. - Possible drug abuse, although toxicology screen was negative. He responded favorably to Narcan. - Urinary tract infection. - Mild HgA1C elevation Plan no labs today- stable from renal stand continue per pulmonary. Mag supplements medium CHO diet Subjective ROS Limited/Unobtainable: No Constitutional: Reports: malaise Objective Objective Last 24 Hour Vital Signs Date Time Temp Pulse Resp B/P (MAP) Pulse Ox O2 Delivery O2 Flow Rate FiO2 04/14/17 13:18 76 130/66 04/14/17 11:36 Nasal Cannula 2.0 04/14/17 11:36 Nasal Cannula 2.0 04/14/17 09:00 76 20 130/58 96 Nasal Cannula 1.0 04/14/17 08:23 78 127/54 04/14/17 08:00 97.8 89 20 127/54 97 Nasal Cannula 3.0 04/14/17 07:48 94 04/14/17 07:15 80 18 98 Nasal Cannula 3.0 04/14/17 07:08 77 18 98 Nasal Cannula 3.0 04/14/17 07:08 98 Nasal Cannula 3.0 04/14/17 07:08 Nasal Cannula 3.0 04/14/17 07:00 91 20 135/77 98 Nasal Cannula 3.0 04/14/17 06:38 98.0 04/14/17 06:00 81 20 117/53 98 Nasal Cannula 3.0 04/14/17 05:46 71 111/68 04/14/17 05:00 76 20 130/76 98 Nasal Cannula 3.0 04/14/17 04:00 98.0 75 26 111/68 98 Nasal Cannula 3.0 04/14/17 04:00 71 04/14/17 03:28 77 22 98 Nasal Cannula 3.0 32 04/14/17 03:18 75 25 97 Nasal Cannula 2.0 28 04/14/17 03:00 81 24 124/61 94 Nasal Cannula 3.0 04/14/17 02:00 81 24 110/53 94 Nasal Cannula 3.0 04/14/17 01:00 84 26 109/56 92 Nasal Cannula 3.0 04/14/17 00:00 86 04/14/17 00:00 98.2 98 21 123/56 98 Nasal Cannula 3.0 04/13/17 23:00 85 26 131/55 94 Nasal Cannula 3.0 04/13/17 22:50 82 24 97 Nasal Cannula 2.0 28 04/13/17 22:42 85 24 91 Nasal Cannula 2.0 28 04/13/17 22:00 85 26 133/60 94 Nasal Cannula 3.0 04/13/17 21:30 88 130/44 04/13/17 21:22 88 130/44 04/13/17 21:00 89 26 130/44 95 Nasal Cannula 3.0 04/13/17 20:00 98.0 26 130/62 98 Nasal Cannula 3.0 04/13/17 20:00 88 04/13/17 19:15 90 20 98 Nasal Cannula 2.0 28 04/13/17 19:06 95 Nasal Cannula 2.0 28 04/13/17 19:06 Nasal Cannula 2.0 28 04/13/17 19:05 88 22 94 Nasal Cannula 2.0 28 04/13/17 19:00 98.5 20 138/88 93 Nasal Cannula 3.0 04/13/17 18:00 98.2 91 21 142/75 94 Nasal Cannula 3.0 04/13/17 17:00 97.5 92 33 146/78 93 Nasal Cannula 3.0 04/13/17 16:00 97.5 90 24 146/75 95 Nasal Cannula 3.0 04/13/17 16:00 81 04/13/17 15:27 88 22 97 Nasal Cannula 3.0 32 04/13/17 15:20 84 22 94 Nasal Cannula 3.0 32 04/13/17 15:00 98.5 90 21 157/79 91 Nasal Cannula 3.0 04/13/17 14:00 98.5 85 19 150/75 92 Nasal Cannula 3.0 04/13/17 13:58 91 136/77 Intake and Output 04/13/17 04/14/17 19:00 07:00 Intake Total 2726.667 ml 1255 ml Output Total 4235 ml 2555 ml Balance -1508.333 ml -1300 ml Intake Oral 2075 ml 600 ml IV Total 651.667 ml 655 ml Output Urine Total 4235 ml 2555 ml # Bowel Movements 3 Height (Feet): 5 Height (Inches): 10.00 Weight (Pounds): 180 General Appearance: no apparent distress Objective no change CHIP DINH Apr 14, 2017 13:53
--- NOTE | 2017-04-14 20:05 | General Progress Note ---
Assessment/Plan Problem List: (1) Respiratory failure ICD Codes: J96.90 - Respiratory failure, unspecified, unspecified whether with hypoxia or hypercapnia SNOMED: 168247583 (2) COPD exacerbation ICD Codes: J44.1 - Chronic obstructive pulmonary disease with (acute) exacerbation SNOMED: 959985775 (3) Hyperkalemia ICD Codes: E87.5 - Hyperkalemia SNOMED: 11983329 (4) Respiratory failure with hypercapnia ICD Codes: J96.92 - Respiratory failure, unspecified with hypercapnia SNOMED: 371935298 (5) Diabetes mellitus ICD Codes: E11.9 - Type 2 diabetes mellitus without complications SNOMED: 71017390 Status: progressing Assessment/Plan extubated resp failure due to copd exacerbation lyte abnormality psych patient and dementia unable to decide for himself reviewed chart and labs Subjective ROS Limited/Unobtainable: Yes Allergies: Coded Allergies: HALOPERIDOL (Verified Allergy, Unknown, 04/12/17) THIORIDAZINE (Verified Allergy, Unknown, 04/12/17) TIOTROPIUM (Verified Allergy, Unknown, 04/12/17) Objective Last 24 Hour Vital Signs Date Time Temp Pulse Resp B/P (MAP) Pulse Ox O2 Delivery O2 Flow Rate FiO2 04/14/17 19:33 80 20 99 Nasal Cannula 3.0 04/14/17 19:26 93 Nasal Cannula 2.0 28 04/14/17 19:26 Nasal Cannula 2.0 28 04/14/17 19:23 79 18 92 Nasal Cannula 2.0 28 04/14/17 16:00 98.0 92 20 125/59 99 Nasal Cannula 1.0 04/14/17 16:00 90 04/14/17 13:18 76 130/66 04/14/17 12:00 87 04/14/17 12:00 96.6 92 22 149/91 92 Nasal Cannula 1.0 04/14/17 11:36 Nasal Cannula 2.0 04/14/17 11:36 Nasal Cannula 2.0 04/14/17 09:00 76 20 130/58 96 Nasal Cannula 1.0 04/14/17 08:23 78 127/54 04/14/17 08:00 97.8 89 20 127/54 97 Nasal Cannula 3.0 04/14/17 07:48 94 04/14/17 07:15 80 18 98 Nasal Cannula 3.0 04/14/17 07:08 77 18 98 Nasal Cannula 3.0 04/14/17 07:08 98 Nasal Cannula 3.0 04/14/17 07:08 Nasal Cannula 3.0 04/14/17 07:00 91 20 135/77 98 Nasal Cannula 3.0 04/14/17 06:38 98.0 04/14/17 06:00 81 20 117/53 98 Nasal Cannula 3.0 04/14/17 05:46 71 111/68 04/14/17 05:00 76 20 130/76 98 Nasal Cannula 3.0 04/14/17 04:00 98.0 75 26 111/68 98 Nasal Cannula 3.0 04/14/17 04:00 71 04/14/17 03:28 77 22 98 Nasal Cannula 3.0 32 04/14/17 03:18 75 25 97 Nasal Cannula 2.0 28 04/14/17 03:00 81 24 124/61 94 Nasal Cannula 3.0 04/14/17 02:00 81 24 110/53 94 Nasal Cannula 3.0 04/14/17 01:00 84 26 109/56 92 Nasal Cannula 3.0 04/14/17 00:00 86 04/14/17 00:00 98.2 98 21 123/56 98 Nasal Cannula 3.0 04/13/17 23:00 85 26 131/55 94 Nasal Cannula 3.0 04/13/17 22:50 82 24 97 Nasal Cannula 2.0 28 04/13/17 22:42 85 24 91 Nasal Cannula 2.0 28 04/13/17 22:00 85 26 133/60 94 Nasal Cannula 3.0 04/13/17 21:30 88 130/44 04/13/17 21:22 88 130/44 04/13/17 21:00 89 26 130/44 95 Nasal Cannula 3.0 Intake and Output 04/13/17 04/14/17 19:00 07:00 Intake Total 2726.667 ml 1255 ml Output Total 4235 ml 2555 ml Balance -1508.333 ml -1300 ml Intake Oral 2075 ml 600 ml IV Total 651.667 ml 655 ml Output Urine Total 4235 ml 2555 ml # Bowel Movements 3 Height (Feet): 5 Height (Inches): 10.00 Weight (Pounds): 180 General Appearance: confused Abdomen: soft Hadadz,Ali MD Apr 14, 2017 20:05
--- NOTE | 2017-04-14 20:32 | Cardiology Progress Note ---
Assessment/Plan Assessment/Plan 1. Dyspnea due to hypoventilation as a result of acute exacerbation of chronic obstructive pulmonary disease. Echo reveals LVEF of ~55-60%. 2. Sinus tachycardia, continue Diltiazem. 3. Acute exacerbation of chronic obstructive pulmonary disease. 4. History of anxiety, could be secondary to hypoxemia. Subjective Cardiovascular: Reports: no symptoms Respiratory: Reports: no symptoms Gastrointestinal/Abdominal: Reports: no symptoms Genitourinary: Reports: no symptoms Subjective Sinus rhythm at 80. Objective Last 24 Hour Vital Signs Date Time Temp Pulse Resp B/P (MAP) Pulse Ox O2 Delivery O2 Flow Rate FiO2 04/14/17 20:00 97.7 97 20 143/86 92 Nasal Cannula 1.0 04/14/17 19:33 80 20 99 Nasal Cannula 3.0 04/14/17 19:26 93 Nasal Cannula 2.0 28 04/14/17 19:26 Nasal Cannula 2.0 28 04/14/17 19:23 79 18 92 Nasal Cannula 2.0 28 04/14/17 16:00 98.0 92 20 125/59 99 Nasal Cannula 1.0 04/14/17 16:00 90 04/14/17 13:18 76 130/66 04/14/17 12:00 87 04/14/17 12:00 96.6 92 22 149/91 92 Nasal Cannula 1.0 04/14/17 11:36 Nasal Cannula 2.0 04/14/17 11:36 Nasal Cannula 2.0 04/14/17 09:00 76 20 130/58 96 Nasal Cannula 1.0 04/14/17 08:23 78 127/54 04/14/17 08:00 97.8 89 20 127/54 97 Nasal Cannula 3.0 04/14/17 07:48 94 04/14/17 07:15 80 18 98 Nasal Cannula 3.0 04/14/17 07:08 77 18 98 Nasal Cannula 3.0 04/14/17 07:08 98 Nasal Cannula 3.0 04/14/17 07:08 Nasal Cannula 3.0 04/14/17 07:00 91 20 135/77 98 Nasal Cannula 3.0 04/14/17 06:38 98.0 04/14/17 06:00 81 20 117/53 98 Nasal Cannula 3.0 04/14/17 05:46 71 111/68 04/14/17 05:00 76 20 130/76 98 Nasal Cannula 3.0 04/14/17 04:00 98.0 75 26 111/68 98 Nasal Cannula 3.0 04/14/17 04:00 71 04/14/17 03:28 77 22 98 Nasal Cannula 3.0 32 04/14/17 03:18 75 25 97 Nasal Cannula 2.0 28 04/14/17 03:00 81 24 124/61 94 Nasal Cannula 3.0 04/14/17 02:00 81 24 110/53 94 Nasal Cannula 3.0 04/14/17 01:00 84 26 109/56 92 Nasal Cannula 3.0 04/14/17 00:00 86 04/14/17 00:00 98.2 98 21 123/56 98 Nasal Cannula 3.0 04/13/17 23:00 85 26 131/55 94 Nasal Cannula 3.0 04/13/17 22:50 82 24 97 Nasal Cannula 2.0 28 04/13/17 22:42 85 24 91 Nasal Cannula 2.0 28 04/13/17 22:00 85 26 133/60 94 Nasal Cannula 3.0 04/13/17 21:30 88 130/44 04/13/17 21:22 88 130/44 04/13/17 21:00 89 26 130/44 95 Nasal Cannula 3.0 Intake and Output 04/13/17 04/14/17 19:00 07:00 Intake Total 2726.667 ml 1255 ml Output Total 4235 ml 2555 ml Balance -1508.333 ml -1300 ml Intake Oral 2075 ml 600 ml IV Total 651.667 ml 655 ml Output Urine Total 4235 ml 2555 ml # Bowel Movements 3 2D Echo: LVEF 55-60%, small pericardial effuson. Objective HEENT: Atraumatic and normocephalic. Anicteric. Pupils are equal, round, and reactive to light and accommodation. Extraocular muscles intact. NECK: JVP less than 5 centimeter. No carotid bruit. Carotid upstrokes 2+ bilaterally. CARDIOVASCULAR: Normal S1 and S2. Regular rate and rhythm. No murmurs, gallops or rubs. PMI is in the fourth intercostal space in the mid clavicular line. LUNGS: Diminished breath sounds in both zones. ABDOMEN: Soft, nontender, and nondistended. Positive bowel sounds. EXTREMITIES: No evidence of edema, clubbing, or cyanosis. RADHA FOLEY Apr 14, 2017 20:32
[2017-04-14] MEDS: Tamsulosin 0.4mg cap ORAL SCH (21:52)
[2017-04-14] MEDS: Cefepime HCl 1 GM in NS 55 ML IVPB SCH (21:53)
[2017-04-15] VITALS: BP 148/70
[2017-04-15] MEDS: Albuterol/Ipratropium 3ml neb HHN SCH ×6 (03:00→23:10)
[2017-04-15 04:00] VITALS: BP 144/78
[2017-04-15] MEDS: dilTIAZem HCl 30mg tab ORAL SCH ×4 (06:26→23:16)
[2017-04-15 07:48] LABS: EOSINOPHILS % (AUTO) 0.1 % (0.0-3.0); HEMATOCRIT 43.4 % (42.0-52.0); HEMOGLOBIN 14.7 G/DL (14.2-18.0); LYMPHOCYTES % (AUTO) 16.6 % (20.0-45.0); MEAN CORPUSCULAR VOLUME 86 FL (80-99); MONOCYTES % (AUTO) 13.3 % (1.0-10.0); PLATELET COUNT 217 K/UL (150-450); RED BLOOD COUNT 5.05 M/UL (4.70-6.10)
[2017-04-15 08:00] VITALS: BP 119/75
[2017-04-15 08:00] LABS: ALANINE AMINOTRANSFERASE 25 U/L (12-78); ALBUMIN 2.8 G/DL (3.4-5.0); ALBUMIN/GLOBULIN RATIO 0.9 (1.0-2.7); ALKALINE PHOSPHATASE 54 U/L (46-116); ANION GAP 4 mmol/L (5-15); ASPARTATE AMINO TRANSFERASE 22 U/L (15-37); BILIRUBIN,TOTAL 0.3 MG/DL (0.2-1.0); BLOOD UREA NITROGEN 25 mg/dL (7-18); CARBON DIOXIDE 35 MMOL/L (21-32); CHLORIDE 98 MMOL/L (98-107); CREATININE 0.8 MG/DL (0.55-1.30); PHOSPHORUS 3.5 MG/DL (2.5-4.9); POTASSIUM 3.8 MMOL/L (3.5-5.1); SODIUM 137 MMOL/L (136-145)
--- NOTE | 2017-04-15 08:33 | Cardiology Progress Note ---
Assessment/Plan Assessment/Plan 1. Dyspnea due to hypoventilation as a result of acute exacerbation of chronic obstructive pulmonary disease. Echo reveals LVEF of ~55-60%. 2. Sinus tachycardia, resolved continue Diltiazem. 3. Acute exacerbation of chronic obstructive pulmonary disease. 4. History of anxiety. Subjective Subjective Sinus rhythm at 88. Objective Last 24 Hour Vital Signs Date Time Temp Pulse Resp B/P (MAP) Pulse Ox O2 Delivery O2 Flow Rate FiO2 04/15/17 07:18 88 20 99 Nasal Cannula 3.0 04/15/17 07:13 Nasal Cannula 2.0 28 04/15/17 07:13 97 Nasal Cannula 2.0 28 04/15/17 07:11 85 18 97 Nasal Cannula 2.0 28 04/15/17 06:26 96 144/78 04/15/17 04:00 72 04/15/17 04:00 98.0 96 20 144/78 Nasal Cannula 1.0 04/15/17 03:03 Nasal Cannula 2.0 04/15/17 03:03 Nasal Cannula 2.0 04/15/17 00:00 97.0 81 20 148/70 95 Nasal Cannula 1.0 04/15/17 00:00 81 04/14/17 23:18 81 18 94 Nasal Cannula 2.0 28 04/14/17 22:30 78 20 98 Nasal Cannula 3.0 04/14/17 21:53 97 143/86 04/14/17 21:52 97 143/86 04/14/17 20:00 97.7 97 20 143/86 92 Nasal Cannula 1.0 04/14/17 20:00 84 04/14/17 19:33 80 20 99 Nasal Cannula 3.0 04/14/17 19:26 93 Nasal Cannula 2.0 28 04/14/17 19:26 Nasal Cannula 2.0 28 04/14/17 19:23 79 18 92 Nasal Cannula 2.0 28 04/14/17 16:00 98.0 92 20 125/59 99 Nasal Cannula 1.0 04/14/17 16:00 90 04/14/17 13:18 76 130/66 04/14/17 12:00 87 04/14/17 12:00 96.6 92 22 149/91 92 Nasal Cannula 1.0 04/14/17 11:36 Nasal Cannula 2.0 04/14/17 11:36 Nasal Cannula 2.0 04/14/17 09:00 76 20 130/58 96 Nasal Cannula 1.0 Intake and Output 04/14/17 04/15/17 19:00 07:00 Intake Total 574 ml 1630 ml Output Total 1450 ml 5400 ml Balance -876 ml -3770 ml Intake Oral 350 ml 1000 ml IV Total 224 ml 630 ml Output Urine Total 1450 ml 5400 ml # Voids 4 # Bowel Movements 2 2D Echo: LVEF 55-60%, small pericardial effusion Laboratory Tests Test 04/15/17 06:47 White Blood Count 9.0 K/UL (4.8-10.8) Red Blood Count 5.05 M/UL (4.70-6.10) Hemoglobin 14.7 G/DL (14.2-18.0) Hematocrit 43.4 % (42.0-52.0) Mean Corpuscular Volume 86 FL (80-99) Mean Corpuscular Hemoglobin 29.0 PG (27.0-31.0) Mean Corpuscular Hemoglobin Concent 33.8 G/DL (32.0-36.0) Red Cell Distribution Width 17.0 % (11.6-14.8) H Platelet Count 217 K/UL (150-450) Mean Platelet Volume 6.4 FL (6.5-10.1) L Neutrophils (%) (Auto) 69.0 % (45.0-75.0) Lymphocytes (%) (Auto) 16.6 % (20.0-45.0) L Monocytes (%) (Auto) 13.3 % (1.0-10.0) H Eosinophils (%) (Auto) 0.1 % (0.0-3.0) Basophils (%) (Auto) 1.0 % (0.0-2.0) Sodium Level 137 MMOL/L (136-145) Potassium Level 3.8 MMOL/L (3.5-5.1) Chloride Level 98 MMOL/L (98-107) Carbon Dioxide Level 35 MMOL/L (21-32) H Anion Gap 4 mmol/L (5-15) L Blood Urea Nitrogen 25 mg/dL (7-18) H Creatinine 0.8 MG/DL (0.55-1.30) Estimat Glomerular Filtration Rate > 60 mL/min (>60) Glucose Level 88 MG/DL (74-106) Uric Acid 4.1 MG/DL (2.6-7.2) Calcium Level 9.0 MG/DL (8.5-10.1) Phosphorus Level 3.5 MG/DL (2.5-4.9) Magnesium Level 1.8 MG/DL (1.8-2.4) Total Bilirubin 0.3 MG/DL (0.2-1.0) Aspartate Amino Transf (AST/SGOT) 22 U/L (15-37) Alanine Aminotransferase (ALT/SGPT) 25 U/L (12-78) Alkaline Phosphatase 54 U/L (46-116) Total Protein 5.9 G/DL (6.4-8.2) L Albumin 2.8 G/DL (3.4-5.0) L Globulin 3.1 g/dL Albumin/Globulin Ratio 0.9 (1.0-2.7) L Objective HEENT: Atraumatic and normocephalic. Anicteric. Pupils are equal, round, and reactive to light and accommodation. Extraocular muscles intact. NECK: JVP less than 5 centimeter. No carotid bruit. Carotid upstrokes 2+ bilaterally. CARDIOVASCULAR: Normal S1 and S2. Regular rate and rhythm. No murmurs, gallops or rubs. PMI is in the fourth intercostal space in the mid clavicular line. LUNGS: Diminished breath sounds in both zones. ABDOMEN: Soft, nontender, and nondistended. Positive bowel sounds. EXTREMITIES: No evidence of edema, clubbing, or cyanosis. RADHA FOLEY Apr 15, 2017 08:33
[2017-04-15] MEDS ORDERED: Azithromycin 250mg tab ORAL SCH (09:00)
[2017-04-15] MEDS: D5NS 1,000 ML IV SCH (09:45)
[2017-04-15] MEDS: Cefepime HCl 1 GM in NS 55 ML IVPB SCH ×2 (09:46→21:04)
[2017-04-15] MEDS: Metoprolol Tartrate 12.5mg TAB ORAL SCH ×2 (09:46→21:02)
--- NOTE | 2017-04-15 10:10 | Infectious Diseases Prog Note ---
Assessment/Plan Assessment/Plan A; Complicated UTI with pseudomonas COPD exacerbation Hypercapnic respiratory failure Nicotine dependence Schizophrenia P: discontinue Zithromax , continue Cefepime Subjective ROS Limited/Unobtainable: No Constitutional: Reports: no symptoms Respiratory: Reports: productive cough Cardiovascular: Reports: no symptoms Gastrointestinal/Abdominal: Reports: no symptoms Genitourinary: Reports: no symptoms Allergies: Coded Allergies: HALOPERIDOL (Verified Allergy, Unknown, 04/12/17) THIORIDAZINE (Verified Allergy, Unknown, 04/12/17) TIOTROPIUM (Verified Allergy, Unknown, 04/12/17) Objective Vital Signs Last 24 Hour Vital Signs Date Time Temp Pulse Resp B/P (MAP) Pulse Ox O2 Delivery O2 Flow Rate FiO2 04/15/17 09:46 90 119/75 04/15/17 07:18 88 20 99 Nasal Cannula 3.0 04/15/17 07:13 Nasal Cannula 2.0 28 04/15/17 07:13 97 Nasal Cannula 2.0 28 04/15/17 07:11 85 18 97 Nasal Cannula 2.0 04/15/17 06:26 96 144/78 04/15/17 04:00 72 04/15/17 04:00 98.0 96 20 144/78 Nasal Cannula 1.0 04/15/17 03:03 Nasal Cannula 2.0 04/15/17 03:03 Nasal Cannula 2.0 04/15/17 00:00 97.0 81 20 148/70 95 Nasal Cannula 1.0 04/15/17 00:00 81 04/14/17 23:18 81 18 94 Nasal Cannula 2.0 04/14/17 22:30 78 20 98 Nasal Cannula 3.0 04/14/17 21:53 97 143/86 04/14/17 21:52 97 143/86 04/14/17 20:00 97.7 97 20 143/86 92 Nasal Cannula 1.0 04/14/17 20:00 84 04/14/17 19:33 80 20 99 Nasal Cannula 3.0 04/14/17 19:26 93 Nasal Cannula 2.0 28 04/14/17 19:26 Nasal Cannula 2.0 28 04/14/17 19:23 79 18 92 Nasal Cannula 2.0 28 04/14/17 16:00 98.0 92 20 125/59 99 Nasal Cannula 1.0 04/14/17 16:00 90 04/14/17 13:18 76 130/66 04/14/17 12:00 87 04/14/17 12:00 96.6 92 22 149/91 92 Nasal Cannula 1.0 04/14/17 11:36 Nasal Cannula 2.0 04/14/17 11:36 Nasal Cannula 2.0 Height (Feet): 5 Height (Inches): 10.00 Weight (Pounds): 182 General Appearance: no acute distress HEENT: mucous membranes moist Respiratory/Chest: lungs clear Cardiovascular: normal rate Abdomen: soft, non tender Extremities: no edema Neurologic/Psychiatric: alert, oriented x 3, responsive Laboratory Tests Test 04/15/17 06:47 White Blood Count 9.0 K/UL (4.8-10.8) Red Blood Count 5.05 M/UL (4.70-6.10) Hemoglobin 14.7 G/DL (14.2-18.0) Hematocrit 43.4 % (42.0-52.0) Mean Corpuscular Volume 86 FL (80-99) Mean Corpuscular Hemoglobin 29.0 PG (27.0-31.0) Mean Corpuscular Hemoglobin Concent 33.8 G/DL (32.0-36.0) Red Cell Distribution Width 17.0 % (11.6-14.8) H Platelet Count 217 K/UL (150-450) Mean Platelet Volume 6.4 FL (6.5-10.1) L Neutrophils (%) (Auto) 69.0 % (45.0-75.0) Lymphocytes (%) (Auto) 16.6 % (20.0-45.0) L Monocytes (%) (Auto) 13.3 % (1.0-10.0) H Eosinophils (%) (Auto) 0.1 % (0.0-3.0) Basophils (%) (Auto) 1.0 % (0.0-2.0) Sodium Level 137 MMOL/L (136-145) Potassium Level 3.8 MMOL/L (3.5-5.1) Chloride Level 98 MMOL/L (98-107) Carbon Dioxide Level 35 MMOL/L (21-32) H Anion Gap 4 mmol/L (5-15) L Blood Urea Nitrogen 25 mg/dL (7-18) H Creatinine 0.8 MG/DL (0.55-1.30) Estimat Glomerular Filtration Rate > 60 mL/min (>60) Glucose Level 88 MG/DL (74-106) Uric Acid 4.1 MG/DL (2.6-7.2) Calcium Level 9.0 MG/DL (8.5-10.1) Phosphorus Level 3.5 MG/DL (2.5-4.9) Magnesium Level 1.8 MG/DL (1.8-2.4) Total Bilirubin 0.3 MG/DL (0.2-1.0) Aspartate Amino Transf (AST/SGOT) 22 U/L (15-37) Alanine Aminotransferase (ALT/SGPT) 25 U/L (12-78) Alkaline Phosphatase 54 U/L (46-116) Total Protein 5.9 G/DL (6.4-8.2) L Albumin 2.8 G/DL (3.4-5.0) L Globulin 3.1 g/dL Albumin/Globulin Ratio 0.9 (1.0-2.7) L Current Medications Medications (Trade) Dose Ordered Sig/Quoc Route PRN Reason Start Time Stop Time Status Last Admin Dose Admin Acetaminophen (Tylenol) 650 mg Q4H PRN ORAL Mild Pain/Temp > 100.5 04/14/17 11:45 05/13/17 11:44 04/14/17 21:54 Albuterol/ Ipratropium (Albuterol/ Ipratropium) 3 ml Q2H PRN HHN Shortness of Breath 04/14/17 11:30 04/17/17 09:29 04/14/17 15:18 Albuterol/ Ipratropium (Albuterol/ Ipratropium) 3 ml Q4HRT HHN 04/14/17 11:00 04/16/17 22:59 04/15/17 07:11 Azithromycin (Zithromax) 250 mg DAILY ORAL 04/15/17 09:00 04/20/17 11:59 04/15/17 09:47 Budesonide/ Formoterol Fumarate (Symbicort 160/ 4.5) 2 puff TWICE A DAY INH 04/14/17 18:00 05/14/17 09:29 Cefepime HCl 1 gm/ Sodium Chloride 55 ml @ 110 mls/hr EVERY 12 HOURS IVPB 04/14/17 21:00 04/21/17 09:29 04/15/17 09:46 Dextrose/Sodium Chloride 1,000 ml @ 50 mls/hr Q20H IV 04/14/17 11:30 05/13/17 11:29 04/15/17 09:45 Diltiazem HCl (Cardizem) 30 mg EVERY 8 HOURS ORAL 04/14/17 14:00 05/12/17 17:59 04/15/17 06:26 Metoprolol Tartrate (Lopressor) 12.5 mg Q12HR ORAL 04/14/17 21:00 05/13/17 20:59 04/15/17 09:46 Pantoprazole (Protonix) 40 mg EVERY 12 HOURS ORAL 04/14/17 21:00 05/13/17 20:59 04/15/17 09:47 Prednisone (predniSONE) 20 mg DAILY ORAL 04/15/17 09:00 05/14/17 08:59 04/15/17 09:47 Tamsulosin HCl (Flomax) 0.4 mg BEDTIME ORAL 04/14/17 21:00 05/13/17 20:59 04/14/17 21:52 JULIETTE ACOSTA Apr 15, 2017 10:10
--- NOTE | 2017-04-15 10:14 | Nephrology Progress Note ---
Assessment/Plan Problem List: (1) Respiratory failure with hypercapnia (2) COPD exacerbation (3) Hyperkalemia (4) Diabetes mellitus Assessment Currently out of ICU Was extubated High K possibly hemolysis. resolved Other: - Acute respiratory failure. - Chronic obstructive pulmonary disease, hypercapnic type. - Possible drug abuse, although toxicology screen was negative. He responded favorably to Narcan. - Urinary tract infection. - Mild HgA1C elevation Plan stable renal parameters stable from renal stand continue per pulmonary. Mag supplements medium CHO diet DC planning? Subjective ROS Limited/Unobtainable: No Objective Objective Last 24 Hour Vital Signs Date Time Temp Pulse Resp B/P (MAP) Pulse Ox O2 Delivery O2 Flow Rate FiO2 04/15/17 09:46 90 119/75 04/15/17 07:18 88 20 99 Nasal Cannula 3.0 04/15/17 07:13 Nasal Cannula 2.0 28 04/15/17 07:13 97 Nasal Cannula 2.0 28 04/15/17 07:11 85 18 97 Nasal Cannula 2.0 28 04/15/17 06:26 96 144/78 04/15/17 04:00 72 04/15/17 04:00 98.0 96 20 144/78 Nasal Cannula 1.0 04/15/17 03:03 Nasal Cannula 2.0 04/15/17 03:03 Nasal Cannula 2.0 04/15/17 00:00 97.0 81 20 148/70 95 Nasal Cannula 1.0 04/15/17 00:00 81 04/14/17 23:18 81 18 94 Nasal Cannula 2.0 04/14/17 22:30 78 20 98 Nasal Cannula 3.0 04/14/17 21:53 97 143/86 04/14/17 21:52 97 143/86 04/14/17 20:00 97.7 97 20 143/86 92 Nasal Cannula 1.0 04/14/17 20:00 84 04/14/17 19:33 80 20 99 Nasal Cannula 3.0 04/14/17 19:26 93 Nasal Cannula 2.0 28 04/14/17 19:26 Nasal Cannula 2.0 28 04/14/17 19:23 79 18 92 Nasal Cannula 2.0 28 04/14/17 16:00 98.0 92 20 125/59 99 Nasal Cannula 1.0 04/14/17 16:00 90 04/14/17 13:18 76 130/66 04/14/17 12:00 87 04/14/17 12:00 96.6 92 22 149/91 92 Nasal Cannula 1.0 04/14/17 11:36 Nasal Cannula 2.0 04/14/17 11:36 Nasal Cannula 2.0 Intake and Output 04/14/17 04/15/17 19:00 07:00 Intake Total 574 ml 1630 ml Output Total 1450 ml 5400 ml Balance -876 ml -3770 ml Intake Oral 350 ml 1000 ml IV Total 224 ml 630 ml Output Urine Total 1450 ml 5400 ml # Voids 4 # Bowel Movements 2 Laboratory Tests 04/15/17 06:47: White Blood Count 9.0, Red Blood Count 5.05, Hemoglobin 14.7, Hematocrit 43.4, Mean Corpuscular Volume 86, Mean Corpuscular Hemoglobin 29.0, Mean Corpuscular Hemoglobin Concent 33.8, Red Cell Distribution Width 17.0H, Platelet Count 217, Mean Platelet Volume 6.4L, Neutrophils (%) (Auto) 69.0, Lymphocytes (%) (Auto) 16.6L, Monocytes (%) (Auto) 13.3H, Eosinophils (%) (Auto) 0.1, Basophils (%) ( Auto) 1.0, Sodium Level 137, Potassium Level 3.8, Chloride Level 98, Carbon Dioxide Level 35H, Anion Gap 4L, Blood Urea Nitrogen 25H, Creatinine 0.8, Estimat Glomerular Filtration Rate > 60, Glucose Level 88, Uric Acid 4.1, Calcium Level 9.0, Phosphorus Level 3.5, Magnesium Level 1.8, Total Bilirubin 0.3, Aspartate Amino Transf (AST/SGOT) 22, Alanine Aminotransferase (ALT/SGPT) 25, Alkaline Phosphatase 54, Total Protein 5.9L, Albumin 2.8L, Globulin 3.1, Albumin/Globulin Ratio 0.9L Height (Feet): 5 Height (Inches): 10.00 Weight (Pounds): 182 General Appearance: no apparent distress Objective no change CHIP DINH Apr 15, 2017 10:14
[2017-04-15 12:00] VITALS: BP 120/67
[2017-04-15 16:00] VITALS: BP 138/77
--- NOTE | 2017-04-15 16:30 | Pulmonology Progress Note ---
Assessment/Plan Assessment/Plan 1. Acute respiratory failure. 2. Chronic obstructive pulmonary disease, hypercapnic type. 3. Possible drug abuse. 4. Urinary tract infection, pseudomonas change to Cefepime PO steroids, taper Symbicort dc planning Subjective Respiratory: Denies: productive cough, shortness of breath Allergies: Coded Allergies: HALOPERIDOL (Verified Allergy, Unknown, 04/12/17) THIORIDAZINE (Verified Allergy, Unknown, 04/12/17) TIOTROPIUM (Verified Allergy, Unknown, 04/12/17) Objective Last 24 Hour Vital Signs Date Time Temp Pulse Resp B/P (MAP) Pulse Ox O2 Delivery O2 Flow Rate FiO2 04/15/17 15:52 78 18 98 Nasal Cannula 2.0 28 04/15/17 13:34 72 120/67 04/15/17 12:00 98.7 94 20 120/67 94 Nasal Cannula 1.0 04/15/17 12:00 72 04/15/17 11:10 84 20 99 Nasal Cannula 3.0 04/15/17 11:02 82 18 95 Nasal Cannula 2.0 28 04/15/17 09:46 90 119/75 04/15/17 08:00 86 04/15/17 08:00 97.7 90 20 119/75 95 04/15/17 07:18 88 20 99 Nasal Cannula 3.0 04/15/17 07:13 Nasal Cannula 2.0 28 04/15/17 07:13 97 Nasal Cannula 2.0 28 04/15/17 07:11 85 18 97 Nasal Cannula 2.0 28 04/15/17 06:26 96 144/78 04/15/17 04:00 72 04/15/17 04:00 98.0 96 20 144/78 Nasal Cannula 1.0 04/15/17 03:03 Nasal Cannula 2.0 04/15/17 03:03 Nasal Cannula 2.0 04/15/17 00:00 97.0 81 20 148/70 95 Nasal Cannula 1.0 04/15/17 00:00 81 04/14/17 23:18 81 18 94 Nasal Cannula 2.0 28 04/14/17 22:30 78 20 98 Nasal Cannula 3.0 04/14/17 21:53 97 143/86 04/14/17 21:52 97 143/86 04/14/17 20:00 97.7 97 20 143/86 92 Nasal Cannula 1.0 2/7/18 20:00 84 04/14/17 19:33 80 20 99 Nasal Cannula 3.0 04/14/17 19:26 93 Nasal Cannula 2.0 28 04/14/17 19:26 Nasal Cannula 2.0 28 04/14/17 19:23 79 18 92 Nasal Cannula 2.0 28 Intake and Output 04/14/17 04/15/17 19:00 07:00 Intake Total 574 ml 1630 ml Output Total 1450 ml 5400 ml Balance -876 ml -3770 ml Intake Oral 350 ml 1000 ml IV Total 224 ml 630 ml Output Urine Total 1450 ml 5400 ml # Voids 4 # Bowel Movements 2 General Appearance: no acute distress HEENT: atraumatic Respiratory/Chest: lungs clear, decreased breath sounds Cardiovascular: normal rate Laboratory Tests 04/15/17 06:47: White Blood Count 9.0, Red Blood Count 5.05, Hemoglobin 14.7, Hematocrit 43.4, Mean Corpuscular Volume 86, Mean Corpuscular Hemoglobin 29.0, Mean Corpuscular Hemoglobin Concent 33.8, Red Cell Distribution Width 17.0H, Platelet Count 217, Mean Platelet Volume 6.4L, Neutrophils (%) (Auto) 69.0, Lymphocytes (%) (Auto) 16.6L, Monocytes (%) (Auto) 13.3H, Eosinophils (%) (Auto) 0.1, Basophils (%) ( Auto) 1.0, Sodium Level 137, Potassium Level 3.8, Chloride Level 98, Carbon Dioxide Level 35H, Anion Gap 4L, Blood Urea Nitrogen 25H, Creatinine 0.8, Estimat Glomerular Filtration Rate > 60, Glucose Level 88, Uric Acid 4.1, Calcium Level 9.0, Phosphorus Level 3.5, Magnesium Level 1.8, Total Bilirubin 0.3, Aspartate Amino Transf (AST/SGOT) 22, Alanine Aminotransferase (ALT/SGPT) 25, Alkaline Phosphatase 54, Total Protein 5.9L, Albumin 2.8L, Globulin 3.1, Albumin/Globulin Ratio 0.9L Current Medications Medications (Trade) Dose Ordered Sig/Quoc Route PRN Reason Start Time Stop Time Status Last Admin Dose Admin Acetaminophen (Tylenol) 650 mg Q4H PRN ORAL Mild Pain/Temp > 100.5 04/14/17 11:45 05/13/17 11:44 04/14/17 21:54 Albuterol/ Ipratropium (Albuterol/ Ipratropium) 3 ml Q2H PRN N Shortness of Breath 04/14/17 11:30 04/17/17 09:29 04/14/17 15:18 Albuterol/ Ipratropium (Albuterol/ Ipratropium) 3 ml Q4HRT HHN 04/14/17 11:00 04/16/17 22:59 04/15/17 15:51 Budesonide/ Formoterol Fumarate (Symbicort 160/ 4.5) 2 puff TWICE A DAY INH 04/14/17 18:00 05/14/17 09:29 Cefepime HCl 1 gm/ Sodium Chloride 55 ml @ 110 mls/hr EVERY 12 HOURS IVPB 04/14/17 21:00 04/21/17 09:29 04/15/17 09:46 Dextrose/Sodium Chloride 1,000 ml @ 50 mls/hr Q20H IV 04/14/17 11:30 05/13/17 11:29 04/15/17 09:45 Diltiazem HCl (Cardizem) 30 mg EVERY 8 HOURS ORAL 04/14/17 14:00 05/12/17 17:59 04/15/17 13:34 Metoprolol Tartrate (Lopressor) 12.5 mg Q12HR ORAL 04/14/17 21:00 05/13/17 20:59 04/15/17 09:46 Pantoprazole (Protonix) 40 mg EVERY 12 HOURS ORAL 04/14/17 21:00 05/13/17 20:59 04/15/17 09:47 Prednisone (predniSONE) 20 mg DAILY ORAL 04/15/17 09:00 05/14/17 08:59 04/15/17 09:47 Tamsulosin HCl (Flomax) 0.4 mg BEDTIME ORAL 04/14/17 21:00 05/13/17 20:59 04/14/17 21:52 DENISA MALONEY Apr 15, 2017 16:30
[2017-04-15] MEDS ORDERED: D5NS 1000ml IV ONE ×2 (16:46→18:45)
[2017-04-15] MEDS ORDERED: Tubing IV Secondary IV ONE (18:45)
[2017-04-15] MEDS ORDERED: D5 1/2NS 1000ml IV ONE (18:45)
[2017-04-15] MEDS ORDERED: Tubing IV Extension IV ONE (18:45)
[2017-04-15 20:00] VITALS: BP 107/66
[2017-04-15] MEDS: Tamsulosin 0.4mg cap ORAL SCH (21:02)
--- NOTE | 2017-04-15 21:47 | General Progress Note ---
Assessment/Plan Problem List: (1) Respiratory failure ICD Codes: J96.90 - Respiratory failure, unspecified, unspecified whether with hypoxia or hypercapnia SNOMED: 347649087 (2) COPD exacerbation ICD Codes: J44.1 - Chronic obstructive pulmonary disease with (acute) exacerbation SNOMED: 734352198 (3) Hyperkalemia ICD Codes: E87.5 - Hyperkalemia SNOMED: 24516895 (4) Respiratory failure with hypercapnia ICD Codes: J96.92 - Respiratory failure, unspecified with hypercapnia SNOMED: 652194751 (5) Diabetes mellitus ICD Codes: E11.9 - Type 2 diabetes mellitus without complications SNOMED: 06396687 Status: progressing Assessment/Plan extubated copd exacerbation is improving afebrile lyte abnormality improving dc in am Subjective ROS Limited/Unobtainable: Yes Allergies: Coded Allergies: HALOPERIDOL (Verified Allergy, Unknown, 04/12/17) THIORIDAZINE (Verified Allergy, Unknown, 04/12/17) TIOTROPIUM (Verified Allergy, Unknown, 04/12/17) Objective Last 24 Hour Vital Signs Date Time Temp Pulse Resp B/P (MAP) Pulse Ox O2 Delivery O2 Flow Rate FiO2 04/15/17 21:02 74 107/66 04/15/17 20:00 98.4 74 24 107/66 94 Nasal Cannula 3.0 04/15/17 19:26 81 18 99 Nasal Cannula 2.0 28 04/15/17 19:21 89 16 98 Nasal Cannula 2.0 28 04/15/17 19:00 Nasal Cannula 2.0 28 04/15/17 19:00 98 Nasal Cannula 2.0 28 04/15/17 16:00 76 04/15/17 16:00 96.6 85 20 138/77 85 Nasal Cannula 1.0 04/15/17 15:52 78 18 98 Nasal Cannula 2.0 28 04/15/17 13:34 72 120/67 04/15/17 12:00 98.7 94 20 120/67 94 Nasal Cannula 1.0 04/15/17 12:00 72 04/15/17 11:10 84 20 99 Nasal Cannula 3.0 04/15/17 11:02 82 18 95 Nasal Cannula 2.0 28 04/15/17 09:46 90 119/75 04/15/17 08:00 86 04/15/17 08:00 97.7 90 20 119/75 95 04/15/17 07:18 88 20 99 Nasal Cannula 3.0 04/15/17 07:13 Nasal Cannula 2.0 28 04/15/17 07:13 97 Nasal Cannula 2.0 28 04/15/17 07:11 85 18 97 Nasal Cannula 2.0 28 04/15/17 06:26 96 144/78 04/15/17 04:00 72 04/15/17 04:00 98.0 96 20 144/78 Nasal Cannula 1.0 04/15/17 03:03 Nasal Cannula 2.0 04/15/17 03:03 Nasal Cannula 2.0 04/15/17 00:00 97.0 81 20 148/70 95 Nasal Cannula 1.0 04/15/17 00:00 81 04/14/17 23:18 81 18 94 Nasal Cannula 2.0 28 04/14/17 22:30 78 20 98 Nasal Cannula 3.0 04/14/17 21:53 97 143/86 04/14/17 21:52 97 143/86 Intake and Output 04/14/17 04/15/17 19:00 07:00 Intake Total 574 ml 1630 ml Output Total 1450 ml 5400 ml Balance -876 ml -3770 ml Intake Oral 350 ml 1000 ml IV Total 224 ml 630 ml Output Urine Total 1450 ml 5400 ml # Voids 4 # Bowel Movements 2 Laboratory Tests 04/15/17 06:47: White Blood Count 9.0, Red Blood Count 5.05, Hemoglobin 14.7, Hematocrit 43.4, Mean Corpuscular Volume 86, Mean Corpuscular Hemoglobin 29.0, Mean Corpuscular Hemoglobin Concent 33.8, Red Cell Distribution Width 17.0H, Platelet Count 217, Mean Platelet Volume 6.4L, Neutrophils (%) (Auto) 69.0, Lymphocytes (%) (Auto) 16.6L, Monocytes (%) (Auto) 13.3H, Eosinophils (%) (Auto) 0.1, Basophils (%) ( Auto) 1.0, Sodium Level 137, Potassium Level 3.8, Chloride Level 98, Carbon Dioxide Level 35H, Anion Gap 4L, Blood Urea Nitrogen 25H, Creatinine 0.8, Estimat Glomerular Filtration Rate > 60, Glucose Level 88, Uric Acid 4.1, Calcium Level 9.0, Phosphorus Level 3.5, Magnesium Level 1.8, Total Bilirubin 0.3, Aspartate Amino Transf (AST/SGOT) 22, Alanine Aminotransferase (ALT/SGPT) 25, Alkaline Phosphatase 54, Total Protein 5.9L, Albumin 2.8L, Globulin 3.1, Albumin/Globulin Ratio 0.9L Height (Feet): 5 Height (Inches): 10.00 Weight (Pounds): 182 Respiratory/Chest: lungs clear Abdomen: soft Jacqueline Rodriguez MD Apr 15, 2017 21:46
[2017-04-16] VITALS: BP 112/68
[2017-04-16 01:09] VITALS: BP 112/68
[2017-04-16] MEDS: D5NS 1,000 ML IV SCH (02:39)
[2017-04-16] MEDS: Albuterol/Ipratropium 3ml neb HHN SCH ×2 (03:23→07:30)
[2017-04-16 04:00] VITALS: BP 116/71
[2017-04-16] MEDS: dilTIAZem HCl 30mg tab ORAL SCH (05:56)
[2017-04-16 08:00] VITALS: BP_SYST 120; BP_SYST 154; BP_DIAS 85; BP_DIAS 89
[2017-04-16 08:15] VITALS: BP 154/89
[2017-04-16] MEDS: Metoprolol Tartrate 12.5mg TAB ORAL SCH (08:15)
[2017-04-16] MEDS ORDERED: BuPROPion SR 100mg tab ORAL SCH (09:00)
[2017-04-16] MEDS: Cefepime HCl 1 GM in NS 55 ML IVPB SCH (09:00)
[2017-04-16] MEDS ORDERED: D5NS 1000ml IV ONE (11:34)
--- NOTE | 2017-04-16 11:59 | Pulmonology Progress Note ---
Assessment/Plan Assessment/Plan 1. Acute respiratory failure. 2. Chronic obstructive pulmonary disease, hypercapnic type. 3. Possible drug abuse. 4. Urinary tract infection, pseudomonas anxious for dc asvised never to smoke PO steroids, taper Symbicort dc today Subjective Respiratory: Denies: productive cough, shortness of breath Allergies: Coded Allergies: HALOPERIDOL (Verified Allergy, Unknown, 04/12/17) THIORIDAZINE (Verified Allergy, Unknown, 04/12/17) TIOTROPIUM (Verified Allergy, Unknown, 04/12/17) Objective Last 24 Hour Vital Signs Date Time Temp Pulse Resp B/P (MAP) Pulse Ox O2 Delivery O2 Flow Rate FiO2 04/16/17 09:31 86 18 94 Nasal Cannula 2.0 28 04/16/17 09:29 86 18 94 Nasal Cannula 2.0 28 04/16/17 08:15 93 154/89 04/16/17 08:00 93 04/16/17 08:00 97.0 93 20 154/89 96 04/16/17 07:40 79 18 95 Nasal Cannula 2.0 28 04/16/17 07:33 92 Nasal Cannula 2.0 28 04/16/17 07:33 Nasal Cannula 2.0 28 04/16/17 07:30 79 18 92 Nasal Cannula 2.0 28 04/16/17 05:56 72 116/71 04/16/17 04:00 72 04/16/17 04:00 97.7 20 116/71 95 Nasal Cannula 2.0 04/16/17 03:31 68 18 99 Nasal Cannula 2.0 28 04/16/17 03:23 65 18 97 Nasal Cannula 2.0 28 04/16/17 00:00 78 04/16/17 00:00 98.0 69 24 112/68 97 Nasal Cannula 2.0 04/15/17 23:16 79 137/93 04/15/17 23:12 84 18 98 Nasal Cannula 2.0 28 04/15/17 23:05 76 18 97 Nasal Cannula 2.0 28 04/15/17 21:02 74 107/66 04/15/17 20:00 98.4 74 24 107/66 94 Nasal Cannula 3.0 04/15/17 20:00 76 04/15/17 19:26 81 18 99 Nasal Cannula 2.0 28 04/15/17 19:21 89 16 98 Nasal Cannula 2.0 28 04/15/17 19:00 Nasal Cannula 2.0 28 04/15/17 19:00 98 Nasal Cannula 2.0 28 04/15/17 16:00 76 04/15/17 16:00 96.6 85 20 138/77 85 Nasal Cannula 1.0 04/15/17 15:52 78 18 98 Nasal Cannula 2.0 28 04/15/17 13:34 72 120/67 04/15/17 12:00 98.7 94 20 120/67 94 Nasal Cannula 1.0 04/15/17 12:00 72 Intake and Output 04/15/17 04/16/17 19:00 07:00 Intake Total 2183 ml 898 ml Output Total 2750 ml 2710 ml Balance -567 ml -1812 ml Intake Oral 1610 ml 400 ml IV Total 573 ml 498 ml Output Urine Total 2750 ml 2710 ml # Bowel Movements 3 General Appearance: no acute distress HEENT: atraumatic Respiratory/Chest: lungs clear, decreased breath sounds Cardiovascular: normal rate DENISA MALONEY Apr 16, 2017 11:59
--- NOTE | 2017-04-16 12:11 | Nephrology Progress Note ---
Assessment/Plan Problem List: (1) Respiratory failure with hypercapnia (2) COPD exacerbation (3) Hyperkalemia (4) Diabetes mellitus Assessment Currently in Med- Surg Was extubated High K possibly hemolysis. resolved Other: - Acute respiratory failure. - Chronic obstructive pulmonary disease, hypercapnic type. - Possible drug abuse, although toxicology screen was negative. He responded favorably to Narcan. - Urinary tract infection. - Mild HgA1C elevation Plan No labs today stable renal parameters continue per pulmonary. Mag supplements as needed medium CHO diet OK to DC Subjective ROS Limited/Unobtainable: No Interval Events/Complaints seen at 10 am Objective Objective Last 24 Hour Vital Signs Date Time Temp Pulse Resp B/P (MAP) Pulse Ox O2 Delivery O2 Flow Rate FiO2 04/16/17 09:31 86 18 94 Nasal Cannula 2.0 28 04/16/17 09:29 86 18 94 Nasal Cannula 2.0 28 04/16/17 08:15 93 154/89 04/16/17 08:00 93 04/16/17 08:00 97.0 93 20 154/89 96 04/16/17 07:40 79 18 95 Nasal Cannula 2.0 28 04/16/17 07:33 92 Nasal Cannula 2.0 28 04/16/17 07:33 Nasal Cannula 2.0 28 04/16/17 07:30 79 18 92 Nasal Cannula 2.0 28 04/16/17 05:56 72 116/71 04/16/17 04:00 72 04/16/17 04:00 97.7 20 116/71 95 Nasal Cannula 2.0 04/16/17 03:31 68 18 99 Nasal Cannula 2.0 28 04/16/17 03:23 65 18 97 Nasal Cannula 2.0 28 04/16/17 00:00 78 04/16/17 00:00 98.0 69 24 112/68 97 Nasal Cannula 2.0 04/15/17 23:16 79 137/93 04/15/17 23:12 84 18 98 Nasal Cannula 2.0 28 04/15/17 23:05 76 18 97 Nasal Cannula 2.0 28 04/15/17 21:02 74 107/66 04/15/17 20:00 98.4 74 24 107/66 94 Nasal Cannula 3.0 04/15/17 20:00 76 04/15/17 19:26 81 18 99 Nasal Cannula 2.0 28 04/15/17 19:21 89 16 98 Nasal Cannula 2.0 28 04/15/17 19:00 Nasal Cannula 2.0 28 04/15/17 19:00 98 Nasal Cannula 2.0 28 04/15/17 16:00 76 04/15/17 16:00 96.6 85 20 138/77 85 Nasal Cannula 1.0 04/15/17 15:52 78 18 98 Nasal Cannula 2.0 28 04/15/17 13:34 72 120/67 Intake and Output 04/15/17 04/16/17 19:00 07:00 Intake Total 2183 ml 898 ml Output Total 2750 ml 2710 ml Balance -567 ml -1812 ml Intake Oral 1610 ml 400 ml IV Total 573 ml 498 ml Output Urine Total 2750 ml 2710 ml # Bowel Movements 3 Height (Feet): 5 Height (Inches): 10.00 Weight (Pounds): 176 General Appearance: no apparent distress Objective no change CHIP DINH Apr 16, 2017 12:11
--- NOTE | 2017-04-16 16:49 | Cardiology Progress Note ---
Assessment/Plan Assessment/Plan 1. Dyspnea due to hypoventilation as a result of acute exacerbation of chronic obstructive pulmonary disease. Echo reveals LVEF of ~55-60%. 2. Sinus tachycardia, resolved continue Diltiazem. Subjective Subjective Sinus rhythm at 93. Objective Last 24 Hour Vital Signs Date Time Temp Pulse Resp B/P (MAP) Pulse Ox O2 Delivery O2 Flow Rate FiO2 04/16/17 09:31 86 18 94 Nasal Cannula 2.0 28 04/16/17 09:29 86 18 94 Nasal Cannula 2.0 28 04/16/17 08:15 93 154/89 04/16/17 08:00 93 04/16/17 08:00 97.0 93 20 154/89 96 04/16/17 07:40 79 18 95 Nasal Cannula 2.0 28 04/16/17 07:33 92 Nasal Cannula 2.0 28 04/16/17 07:33 Nasal Cannula 2.0 28 04/16/17 07:30 79 18 92 Nasal Cannula 2.0 28 04/16/17 05:56 72 116/71 04/16/17 04:00 72 04/16/17 04:00 97.7 20 116/71 95 Nasal Cannula 2.0 04/16/17 03:31 68 18 99 Nasal Cannula 2.0 28 04/16/17 03:23 65 18 97 Nasal Cannula 2.0 28 04/16/17 00:00 78 04/16/17 00:00 98.0 69 24 112/68 97 Nasal Cannula 2.0 04/15/17 23:16 79 137/93 04/15/17 23:12 84 18 98 Nasal Cannula 2.0 28 04/15/17 23:05 76 18 97 Nasal Cannula 2.0 28 04/15/17 21:02 74 107/66 04/15/17 20:00 98.4 74 24 107/66 94 Nasal Cannula 3.0 04/15/17 20:00 76 04/15/17 19:26 81 18 99 Nasal Cannula 2.0 28 04/15/17 19:21 89 16 98 Nasal Cannula 2.0 28 04/15/17 19:00 Nasal Cannula 2.0 28 04/15/17 19:00 98 Nasal Cannula 2.0 28 Intake and Output 04/15/17 04/16/17 19:00 07:00 Intake Total 2183 ml 898 ml Output Total 2750 ml 2710 ml Balance -567 ml -1812 ml Intake Oral 1610 ml 400 ml IV Total 573 ml 498 ml Output Urine Total 2750 ml 2710 ml # Bowel Movements 3 2D Echo: LVEF 55-60%, small pericardial effusion Objective HEENT: Atraumatic and normocephalic. Anicteric. Pupils are equal, round, and reactive to light and accommodation. Extraocular muscles intact. NECK: JVP less than 5 centimeter. No carotid bruit. Carotid upstrokes 2+ bilaterally. CARDIOVASCULAR: Normal S1 and S2. Regular rate and rhythm. No murmurs, gallops or rubs. PMI is in the fourth intercostal space in the mid clavicular line. LUNGS: Diminished breath sounds in both zones. ABDOMEN: Soft, nontender, and nondistended. Positive bowel sounds. EXTREMITIES: No evidence of edema, clubbing, or cyanosis. RADHA FOLEY Apr 16, 2017 16:49
--- NOTE | 2017-04-16 21:32 | Consultation ---
History of Present Illness General Date patient seen: Apr 14, 2017 Chief Complaint: Overdose Present Illness HPI the pt with hx of schizophrenia came in via 911, was lethargic at the half-way, had respiratory failure, had COPD exacerbation and was intubated by the ER doctor. He was transferred to the ICU. the pt ow waxing and waning of consciousness Allergies: Coded Allergies: HALOPERIDOL (Verified Allergy, Unknown, 04/12/17) THIORIDAZINE (Verified Allergy, Unknown, 04/12/17) TIOTROPIUM (Verified Allergy, Unknown, 04/12/17) Medication History Scheduled Amino Acids/Protein Hydrolys (Pro-Stat Liquid), 30 ML ORAL TWICE A DAY, ( Reported) Amlodipine Besylate* (Amlodipine Besylate*), 2.5 MG ORAL DAILY, (Reported) Bupropion Sr* (Wellbutrin Sr*), 100 MG ORAL TWICE A DAY, (Reported) Famotidine (Famotidine), 20 MG ORAL DAILY, (Reported) Gabapentin* (Gabapentin*), 400 MG ORAL THREE TIMES A DAY, (Reported) Mirtazapine* (Remeron*), 15 MG ORAL BEDTIME, (Reported) Multivitamins* (Multivitamins*), 1 TAB ORAL DAILY, (Reported) Tamsulosin Hcl (Tamsulosin Hcl*), 0.4 MG ORAL BEDTIME, (Reported) Scheduled PRN Acetaminophen (Acetaminophen), 650 MG ORAL Q4HR PRN for Prn Headache/Temp > 101, (Reported) Albuterol Sulfate* (Albuterol Sulfate Hhn*), 3 ML INH Q4H PRN for Shortness of Breath, (Reported) Miscellaneous Medications Magnesium Oxide (Magnesium), 400 MG PO, (Reported) Patient History Limited by: medical condition History Provided By: Patient, PMD Healthcare decision maker Estefania Lucero Resuscitation status Full Code Advanced Directive on File Past Medical/Surgical History Past Medical/Surgical History: (1) Hyperkalemia (2) Respiratory failure with hypercapnia (3) Diabetes mellitus (4) Psychiatric disorder (5) schizo, anxiety Review of Systems Psychiatric: Reports: prior hx, anxiety, depressed feelings, emotional problems Physical Exam General Appearance: no apparent distress, confused, agitated Last 24 Hour Vital Signs Date Time Temp Pulse Resp B/P (MAP) Pulse Ox O2 Delivery O2 Flow Rate FiO2 04/16/17 09:31 86 18 94 Nasal Cannula 2.0 28 04/16/17 09:29 86 18 94 Nasal Cannula 2.0 28 04/16/17 08:15 93 154/89 04/16/17 08:00 93 04/16/17 08:00 97.0 93 20 154/89 96 04/16/17 07:40 79 18 95 Nasal Cannula 2.0 28 04/16/17 07:33 92 Nasal Cannula 2.0 28 04/16/17 07:33 Nasal Cannula 2.0 28 04/16/17 07:30 79 18 92 Nasal Cannula 2.0 28 04/16/17 05:56 72 116/71 04/16/17 04:00 72 04/16/17 04:00 97.7 20 116/71 95 Nasal Cannula 2.0 04/16/17 03:31 68 18 99 Nasal Cannula 2.0 28 04/16/17 03:23 65 18 97 Nasal Cannula 2.0 28 04/16/17 00:00 78 04/16/17 00:00 98.0 69 24 112/68 97 Nasal Cannula 2.0 04/15/17 23:16 79 137/93 04/15/17 23:12 84 18 98 Nasal Cannula 2.0 28 04/15/17 23:05 76 18 97 Nasal Cannula 2.0 28 Intake and Output 04/15/17 04/16/17 19:00 07:00 Intake Total 2183 ml 898 ml Output Total 2750 ml 2710 ml Balance -567 ml -1812 ml Intake Oral 1610 ml 400 ml IV Total 573 ml 498 ml Output Urine Total 2750 ml 2710 ml # Bowel Movements 3 Height (Feet): 5 Height (Inches): 10.00 Weight (Pounds): 176 Assessment/Plan Status: not improved, unchanged Debbie Gallego M.D. Apr 16, 2017 21:32
--- NOTE | 2017-04-16 21:35 | General Progress Note ---
Assessment/Plan Status: stable, progressing Subjective Date patient seen: Apr 16, 2017 Neurologic/Psychiatric: Reports: anxiety, depressed, emotional problems Allergies: Coded Allergies: HALOPERIDOL (Verified Allergy, Unknown, 04/12/17) THIORIDAZINE (Verified Allergy, Unknown, 04/12/17) TIOTROPIUM (Verified Allergy, Unknown, 04/12/17) Objective Last 24 Hour Vital Signs Date Time Temp Pulse Resp B/P (MAP) Pulse Ox O2 Delivery O2 Flow Rate FiO2 04/16/17 09:31 86 18 94 Nasal Cannula 2.0 28 04/16/17 09:29 86 18 94 Nasal Cannula 2.0 28 04/16/17 08:15 93 154/89 04/16/17 08:00 93 04/16/17 08:00 97.0 93 20 154/89 96 04/16/17 07:40 79 18 95 Nasal Cannula 2.0 28 04/16/17 07:33 92 Nasal Cannula 2.0 28 04/16/17 07:33 Nasal Cannula 2.0 28 04/16/17 07:30 79 18 92 Nasal Cannula 2.0 28 04/16/17 05:56 72 116/71 04/16/17 04:00 72 04/16/17 04:00 97.7 20 116/71 95 Nasal Cannula 2.0 04/16/17 03:31 68 18 99 Nasal Cannula 2.0 28 04/16/17 03:23 65 18 97 Nasal Cannula 2.0 28 04/16/17 00:00 78 04/16/17 00:00 98.0 69 24 112/68 97 Nasal Cannula 2.0 04/15/17 23:16 79 137/93 04/15/17 23:12 84 18 98 Nasal Cannula 2.0 28 04/15/17 23:05 76 18 97 Nasal Cannula 2.0 28 Intake and Output 04/15/17 04/16/17 19:00 07:00 Intake Total 2183 ml 898 ml Output Total 2750 ml 2710 ml Balance -567 ml -1812 ml Intake Oral 1610 ml 400 ml IV Total 573 ml 498 ml Output Urine Total 2750 ml 2710 ml # Bowel Movements 3 Height (Feet): 5 Height (Inches): 10.00 Weight (Pounds): 176 General Appearance: no apparent distress, alert Neurologic: alert, oriented x 3, responsive Farhadi,Pantea M.D. Apr 16, 2017 21:35
--- NOTE | 2017-04-19 09:13 | Discharge Summary ---
Discharge Summary Hospital Course Date of Admission Apr 11, 2017 at 17:12 Date of Discharge Apr 16, 2017 at 11:35 Admitting Diagnosis COPD EXACERBATION HPI Kosta Lewis is a 61 year old male who was admitted on Apr 11, 2017 at 17:12 for Chronic Obstructive Pulmonary Disease Exacerbation Hospital Course dc summary #[id number] Discharge Medications Continued Medications: Acetaminophen (Acetaminophen) 650 Mg/20.3 Ml Solution 650 MG ORAL Q4HR PRN for Prn Headache/Temp > 101, ML 0 Refills Albuterol Sulfate* (Albuterol Sulfate Hhn*) 2.5 Mg/3 Ml Vial.neb 3 ML INH Q4H PRN for Shortness of Breath, EA Amino Acids/Protein Hydrolys (Pro-Stat Liquid) 30 Ml Liquid.pkt 30 ML ORAL TWICE A DAY, ML Amlodipine Besylate* (Amlodipine Besylate*) 2.5 Mg Tablet 2.5 MG ORAL DAILY, TAB Bupropion Sr* (Wellbutrin Sr*) 100 Mg Tablet.er 100 MG ORAL TWICE A DAY for 30 Days, TAB 0 Refills Famotidine (Famotidine) 20 Mg Tablet 20 MG ORAL DAILY, #30 TAB 0 Refills Gabapentin* (Gabapentin*) 400 Mg Capsule 400 MG ORAL THREE TIMES A DAY, CAP 0 Refills Magnesium Oxide (Magnesium) 400 Mg Capsule 400 MG PO, CAP Mirtazapine* (Remeron*) 15 Mg Tablet 15 MG ORAL BEDTIME, TAB Multivitamins* (Multivitamins*) 1 Each Tablet 1 TAB ORAL DAILY, TAB 0 Refills Tamsulosin Hcl (Tamsulosin Hcl*) 0.4 Mg Cap.er.24h 0.4 MG ORAL BEDTIME, CAP Discharge Condition Upon Discharge: stable Discharge Disposition Patient was discharged to SNF/Subacute Facility(03) Discharge Diagnoses: Discharge Instructions Discharge Instructions Special Instructions I have been assigned to complete a D/C Summary on this account. I was not involved in the patient management Radha Jeffery NP ([facility]) Apr 19, 2017 09:13
--- NOTE | 2017-04-19 23:00 | Discharge Summary 2 SIG ---
DATE OF ADMISSION: 04/11/2017 DATE OF DISCHARGE: 04/16/2017 REASON FOR ADMISSION: 61-year-old male with a past medical history of chronic obstructive pulmonary disease, recent intubation, current smoker, presented to emergency department with a possible overdose. In the facility, the patient went out to smoke. When he came back, he did not remember anything that happened after that. He was brought to the emergency department with altered mental status. There was a question of drug overdose and Narcan was given, but his toxicology screen was negative. Apparently patient became more alert after Narcan. In the emergency department, he was short of breath, tachypneic and hypoxic. Blood gases showed severe respiratory acidosis, and he was intubated. Troponin was negative. Stable hemoglobin and hematocrit. No leukocytosis. Electrolytes and renal parameters were stable. Toxicology screen was negative. Serum alcohol, salicylate, and Tylenol were negative. Urinalysis with evidence of pyuria, +3 leukocyte esterase, and moderate bacteria. The patient was admitted with diagnoses of acute hypercapnic respiratory failure , acute chronic obstructive pulmonary disease exacerbation, possible drug abuse, and urinary tract infection. HOSPITAL COURSE: The patient was admitted to intensive care unit. Ventilator support and pulmonary toilet provided. Patient was followed up with CXR and ABG. The patient was started on the IV fluids and IV steroids, which were gradually tapered. The patient was started on empiric antibiotics. Nebulizing treatment with bronchodilator provided. Cardiology, Pulmonology, Nephrology, and ID consults were requested. S[employer] Mk 2 Advanced Operator closely followed, and subsequently patient was able to be extubated. Mail Processor closely followed the patient. Troponin were negative. Per Cardiology, dyspnea was likely secondary to acute exacerbation of chronic obstructive pulmonary disease. Echocardiogram revealed preserved ejection fraction 55% to 60%. Initial sinus tachycardia resolved. Mail Processor recommended to continue Cardizem. Chisel Worker closely followed. The patient had episode of hyperkalemia, which was treated. Afterwards, renal parameters and electrolytes were stable and nephrotoxics were avoided. Infectious Disease specialist followed. According to Infectious Disease, the patient had a complicated urinary tract infection with Pseudomonas. The patient was on the IV antibiotic, which was subsequently changed to oral prior to discharge. Ssds Mk 2 Advanced Operator counseled on smoking cessation. The patient declined nicotine patch. The patient was discharged on oral steroids and maintenance Symbicort inhaler. Encouraged compliance with medications. Psychiatrist seen and evaluated the patient. The patient with history of schizophrenia. Psychiatric medication regimen was optimized and continued. The patient was stable for discharge back to shelter facility. FINAL DIAGNOSES: 1. Acute hypercapnic respiratory failure requiring intubation 2. Status post extubation. 3. Acute chronic obstructive pulmonary disease exacerbation, hypercapnic type. 4. Complicated urinary tract infection with Pseudomonas. 5. Possible drug abuse. 6. Hyperkalemia, resolved. 7. Nicotine dependency. 8. Schizophrenia. DISCHARGE MEDICATIONS: See medication reconciliation list. DISCHARGE INSTRUCTIONS: The patient was discharged to shelter facility. Follow up with medical care provider at the facility. Jacqueline Rodriguez M.D. I have been assigned to dictate discharge summary on this account and I was not involved in the patient's management. Radha RothMorgan Stanley Children'S HospitalVi N.PConcepcion DR: GERALDINE JOB#: [id number] CC: PAVAN
== END 2017-04-16 11:35 | DRG 208 ==
LOC: EDBD 14:15 → EMR 16:30 → EDBEDREQ 16:51 → UNDOADMIN 17:12 → ICU 17:12 → 2W 17:12 → EDBEDREQ 17:25 → EDBEDREQSVC 18:25 → EDBEDREQ 18:25 → 2E 04-14 10:05
DX: J96.02 Acute respiratory failure with hypercapnia (principal); E87.2 Acidosis; J44.1 Chronic obstructive pulmonary disease with (acute) exacerbation; E87.5 Hyperkalemia; F20.0 Paranoid schizophrenia; N39.0 Urinary tract infection, site not specified; J96.01 Acute respiratory failure with hypoxia; F17.200 Nicotine dependence, unspecified, uncomplicated; B96.5 Pseudomonas (aeruginosa) (mallei) (pseudomallei) as the cause of diseases classified elsewhere; K21.9 Gastro-esophageal reflux disease without esophagitis; N40.0 Benign prostatic hyperplasia without lower urinary tract symptoms; F32.9 Major depressive disorder, single episode, unspecified; R00.0 Tachycardia, unspecified; F19.10 Other psychoactive substance abuse, uncomplicated
CPT/HCPCS: 31500; 36415; 36600; 71045; 80053; 80061; 80307; 80329; 81003; 82803; 82962; 82977; 83036; 83735; 83880; 84100; 84132; 84153; 84443; 84478; 84484; 84550; 85025; 86140; 87081; 87086; 87181; 93005; 93306; 94002; 94003; 94640; 94664; 94760; J2250; J7620